=== PATIENT | female | born 2005 | race Caucasian/White ===

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

== ENCOUNTER 2025-01-09 13:01 | Emergency (ER) | payer BC, SELFPAY ==
--- NOTE | ~2025-01-09 | US_ITS ---
EXAMINATION: US abdomen limited DATE: 01/09/2025 15:41 INDICATION: RUQ pain with eating TECHNIQUE: Multiple grayscale and Doppler ultrasound images of limited portions of the abdomen were o btained. COMPARISON: CT abdomen pelvis, same date. FINDINGS: The visualized portions of the pancreas are normal. The liver is normal with normal echogen icity and echotexture. No surface nodularity. Normal hepatopetal flow in the main portal vein. Normal size gallbladder with no wall thickening or pericholecystic fluid. There is sludge and multiple gall stones. The common bile duct measures 2 mm. There was no sonographic Beavers sign. IMPRESSION: Normal limited abdominal ultrasound findings. Reviewed, dictated and finalized at location K.
--- NOTE | ~2025-01-09 | CT_ITS ---
EXAMINATION: CT abdomen pelvis w con DATE: 01/09/2025 14:33 INDICATION: Right-sided abdominal pain TECHNIQUE: Computed tomography (CT) of the abdomen and pelvis was performed without intravenous contr ast. Automated exposure control and iterative reconstruction technique were employed. The dose-length product was 191.47 mGy-cm. COMPARISON: 11/07/2023 FINDINGS: Mild atelectasis at the medial aspect of the right middle lobe and minimal lingular atelectasis. Hear t size is normal. No pericardial or pleural effusion. Liver, gallbladder, spleen and bilateral adrena l glands are normal. Severe fatty atrophy of the pancreas. Bilateral nonobstructing nephrolithiasis w ith 2 mm stone in upper pole calyx of the left kidney and 3 mm stone at the lower pole the right kidn ey. No evident ureteral stones or hydronephrosis. Seen is a linear high attenuation likely suture jorge e near the tip of the cecum along what on prior imaging appears be a small appendiceal stump related to prior appendectomy. Correlate with surgical history. Moderate to large amount of predominately pro ximal colonic stool which could be seen in the setting of constipation. No dilated bowel to suggest o bstruction. Bladder, anteverted uterus and bilateral adnexa are unremarkable. No free intraperitoneal gas or fluid. No pathologically enlarged abdominal or pelvic lymphadenopathy. IMPRESSION: 1. Moderate to large amount of colonic stool which can be seen in setting of constipation. No other a cute intra-abdominal/pelvic process. 2. Bilateral nonobstructing nephrolithiasis. 3. Severe fatty atrophy of the pancreas which given patient age is strongly suggestive of cystic fibr osis. Reviewed, dictated and finalized at location A. IMPRESSION: 1. Moderate to large amount of colonic stool which can be seen in setting of co nstipation. No other acute intra-abdominal/pelvic process. 2. Bilateral nonobstructing nephrolithiasis. 3. Severe fatty atrophy of the pancreas which given patient age is strongly sug gestive of cystic fibrosis.
[2025-01-09 13:03] VITALS: BP 101/59; PULSE 73; RESP 18; TEMP 36.6; O2SAT 100
--- OUTSIDE RECORDS SUMMARY | 2025-01-09 13:18 | XMS_ITS | Continuity of Care Document ---
Author Organization [facility] Address [address] [place] [address] [address] [place] [address] Phone Care Team Providers Care Senior Engineering Tech Name Role Phone Jes Geiger Unavailable Unavailable Procedures Procedure Date Eye Exam, New Patient Refraction Advance Directives Directive Yes / No Effective Date File Name No Information Encounters Encounter Description Practice Location Reason(s) For Visit Diagnoses Date Provider Providers Copied on Encounter [facility], [address], [place], [place], [id number], [place] tel:[phone] SEC [facility] So No Information 4-[address] Fely Andre. [address] [facility] , [address], [place], [address], [place]. tel:[phone] Family History Family Member Type Diagnosis Age At Onset No Information Payers Payer name Insurance type Covered republican ID Authoriza tion(s) No Information Social History [...]
--- OUTSIDE RECORDS SUMMARY | 2025-01-09 13:18 | XMS_ITS | Clinical Summary ---
Author Organization [facility] Address [address] [place] [address] Care Team Providers Care Dancer Or Choreographer Name Role Phone Em Solano DO Primary Care Provider [phone] Source Comments [facility],non-owned Affiliates and Associated Physician Practices is amultiple site organization consisting of ambulatory clinics and hospital sitesin [place], [place], [place] and [place]. This disclosure is being madepursuant to the Care Everywhere program and may not contain all information available regarding this patient. Last updated 18.[facility] Allergies Active Allergy Reactions Criticality Noted Date [...] FOOD 252 tablet 10/14/2024 Active pancrelipase (Creon) 42916-380248 units capsuleIndications: Pancreatic insufficiency (HCC) TAKE 3 CAPSULES BY MOUTH THREE TIMES DAILY WITH MEALS AND 2 CAPSULES WITH SNACKS 450 capsule 2 11/07/2024 Active Active Problems Patient Care Coordination No te Formatting of this note migh t be different from the original. Do you have any cultural preferences or concerns? 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 Assessment & Plan (09/06/2022 7:18 AM LOSS PREVENTION INVESTIGATOR): Tamara has little sensation of improvement with [...] 06/26/2021 Assessment & Plan (08/27/2021 2:21 PM LOSS PREVENTION INVESTIGATOR): Tamara is a 16 year female with [...] 02/24/2021 Assessment & Plan (09/02/2021 11:01 PM LOSS PREVENTION INVESTIGATOR): A&P - status post cystoscopy and left [...] - Urine trichomonas - Discussed with pediatric icing mixer, Dr. Marie, who recommends IUD removal Assessment [...] Obtain urine trichomonas - Discussed with pediatric icing mixer, Dr. 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 Assessment & Plan (09/06/2022 7:31 AM LOSS PREVENTION INVESTIGATOR): CF lung disease- Tamara does not appear [...] well. Assessment & Plan (10/19/2021 6:58 AM LOSS PREVENTION INVESTIGATOR): CF lung disease- Tamara is doing well [...] has had the influenza vaccine for the 5110-4197 season. She has had two doses of [...] 0 Assessment & Plan (09/28/2020 10:38 AM LOSS PREVENTION INVESTIGATOR): CF lung disease- Tamara is doing well [...] described the measures we have taken at [facility] in response to this crisis and the [...] CF physicians, nurses, respiratory therapists, dietitian, social staff worker, psychologist, and pharmacist. Assessment & Plan (08/04/2020 [...] described the measures we have taken at [facility] in response to this crisis and the efforts to minimize exposure if the patient needs to be seen in person or in the ED. Assessment & Plan (09/23/2019 9:30 AM LOSS PREVENTION INVESTIGATOR): CF lung disease- Tamara is doing well [...] CF physicians, nurses, respiratory therapists, dietitian, social staff worker, psychologist, and pharmacist. Assessment & Plan (06/03/2019 [...] season. Assessment & Plan (11/27/2018 8:18 AM LOSS PREVENTION INVESTIGATOR): CF lung disease- Tamara is doing well [...] findings on new therapy from the [place] [facility]yst[facility] Fibrosis conference last week. Assessment & [...] 67 %ile (Z= 0.43) based on [facility] 2-20 Years BMI-for-age data using vitals from [...] time. Assessment & Plan (10/30/2017 2:05 PM LOSS PREVENTION INVESTIGATOR): CF lung disease- Tamara is doing well [...] time. Assessment & Plan (11/04/2016 12:08 PM LOSS PREVENTION INVESTIGATOR): CF lung disease- Tamara is doing well [...] illness. Assessment & Plan (09/12/2016 10:08 AM LOSS PREVENTION INVESTIGATOR): CF lung disease- Tamara is doing well [...] time. Assessment & Plan (11/02/2015 10:13 AM LOSS PREVENTION INVESTIGATOR): CF lung disease- Tamara is doing well [...] time. Assessment & Plan (08/31/2015 10:50 AM LOSS PREVENTION INVESTIGATOR): CF lung disease- Tamara is doing well [...] 11/30/2015 Assessment & Plan (11/02/2015 10:15 AM LOSS PREVENTION INVESTIGATOR): I think that this is of viral [...] us. Assessment & Plan (11/02/2015 10:17 AM LOSS PREVENTION INVESTIGATOR): Vocal Cord Dysfunction - The incomplete/poor response [...] Type Department Care Team Description 12/06/2024 Telephone [facility] Cystic Fibrosis [address] [place] [address] Obdulia Blackwood CPhT Medication Prior Auth Request 11/07/2024 Orders Only [facility] - Pulmonology [address] [facility] [place] [id number] Luciana Blunt, BECCA Pancreatic insufficiency 10/14/2024 Refill [facility] Cystic Fibrosis [address] [place] [address] Stan Celeste MD Refill Request from Last 3 Months Immunizations Name Administration [...] TRIVALENT; 6MO+), 0.5 ML (IIV3) 07/01/2024,06/27/2013,07/30/2011,07/24,08/29/2006,07/11/2006 MENINGOCOCCAL ACWY (MCV4P) VAC IM 06/09/2016 MENINGOCOCCAL ACWY MENVEO 11/30/2021 MMR/VARICELLA 07/08/2010,05/30/2006 PNEUMOCOCCAL PCV7 CONJ, PEDS [...] Comments Blood Pressure 96/64 10/07/2024 8:36 AM LOSS PREVENTION INVESTIGATOR Pulse 72 10/07/2024 8:36 AM LOSS PREVENTION INVESTIGATOR Temperature 36.6 C (97.8 F) 08/05/2024 10:39 AM CDT Respiratory Rate 17 10/07/2024 8:36 AM LOSS PREVENTION INVESTIGATOR Oxygen Saturation 94% 10/07/2024 8:36 AM LOSS PREVENTION INVESTIGATOR Inhaled Oxygen Concentration 100% 02/21/2023 2 :15 PM CDT Weight 64 kg (141 lb 3.2 oz) 10/07/2024 8:36 AM LOSS PREVENTION INVESTIGATOR Height 162.6 cm (5' 4 ) 10/07/2024 8:36 AM LOSS PREVENTION INVESTIGATOR Body Mass Index 24.24 10/07/2024 8:36 AM LOSS PREVENTION INVESTIGATOR Plan of Treatment Upcoming Encounters Date Type Department Care Team (Late st Contact Info) Description 01/21/2025 1:00 PM CDT Office Visit [facility] - Neurology [address] [facility] [place] [address] Patt Crain PA-C [address] [place] [address] Health Maintenance Due Date Last Done Comments PNEUMOCOCCAL VACCINE (1 of 1 - PPSV23) 2011 05/30/2006, 2005, 2005, Additional history exists AFB CULTURE 08/26/2014 08/26/2013 HIV SCREENING 2020 MENINGOCOCCAL (Group B) VACC INE SHARED DECISION-MAKING (1 of 2 - Standard) 2021 BONE DENSITY (CF) 09/28/2022 09/28/2020 HEPATITIS C SCREENING 05/22/2023 COVID-19 VACCINE (3 - 2023-2 5 season) 2024 04/29/2021, 04/07/2021 CHLAMYDIA/GONORRHEA SCREENING 07/21/2024, 01/10/2023, 10/13/2022, Additional history exists DEPRESSION SCREENING 10/09/2024 11/20/2023 PULMONARY CULTURE 01/05/2025 10/07/2024, , 10/16/2023, Additional history exists DTAP/TDAP/TD VACCINES (7 - T d or Tdap) 06/03/2025 06/03/2015, 07/08/2010, 08/29/2006, Additional history exists 2 HR GTT/FASTING GLUCOSE 07/01/20252 024, 08/07/2023, 03/28/2022, Additional history exists CBC [...] history exists Medical Devices Explanted Type Area Automotive Parts Counter Associate Device Identifier Shelf Expiration Date Model / Serial / Lot Set Stent 24cm 5fr Universa .038in 3cm 2 Explanted:Qty: 1 on 06/29/2021 at [facility] Left: Ureter [employer] 02/23/2023 [id number] / / [id number] Set Stent 26cm 5fr Universa 2 Pgtl Crv Implanted:Qty: 1 on 06/29/2021 by Kashmir Wheat MD at [facility] Explanted:Qty: 1 on 08/04/2021 by Kashmir Wheat MD at [facility] Left: Ureter [employer] 01/31/2024 [id number] / / [id number] Firm Ureteral Stent And Positioner Implanted:Qty: 1 on 08/04/2021 by Kashmir Wheat MD at [facility] Explanted:Qty: 1 on 08/24/2021 by Kashmir Wheat MD at [facility] Left: Ureter [employer] 04/06/2024 [id number] / / [id number] Description:NO CHARGE ITEM, TRIAL stent removed intact and discarded Procedures Procedure Name Priority Date/Time Associated Diagnosis Comments CULTURE CYSTIC FIBROSIS PULMONARY Routine 10/07/2024 9:51 AM LOSS PREVENTION INVESTIGATOR Cystic fibrosis CBC W AUTO DIFFERENTIAL Routine 07/01/2024 1:11 PM CDT Cystic fibrosis-V588oim/F 508del COMPREHENSIVE METABOLIC PANEL Routine 07/01/2024 1:11 PM CDT Cystic fibrosis-O508jhv/F 508del IGE BLOOD Routine 07/01/2024 1:11 PM CDT Cystic fibrosis-R711unl/F 508del PT-INR [facility] Routine 07/01/2024 1:11 PM CDT Cystic fibrosis-F852nrq/F 508del VITAMIN E Routine 07/01/2024 1:11 PM CDT Cystic fibrosis-N506jem/F 508del VITAMIN D 25-HYDROXY Routine 07/01/2024 1:11 PM CDT Cystic fibrosis-A311mqz/F 508del VITAMIN A Routine 07/01/2024 1:11 PM CDT Cystic fibrosis-D104kyd/F 508del GGT Routine 07/01/2024 1:11 PM CDT Cystic fibrosis-I505cvd/F 508del GLUCOSE - POINT OF CARE Routine 07/01/2024 10:56 AM CDT CHLAMYDIA + GC AMPLIFIED PROBE Routine 01/10/2023 5:02 PM CDT DEXA BONE DENSITY AXIAL SKELETON Routine 09/28/2020 11:36 AM LOSS PREVENTION INVESTIGATOR Cystic fibrosis CULTURE AFB+SMEAR Routine 08/26/2013 12: 01 PM LOSS PREVENTION INVESTIGATOR Cystic fibrosis from Last 3 Months or Most Recently Relevant to Health Maintenance Results * (ABNORMAL) CULTURE CYSTIC FIBROSIS PULMONARY (10/07/2024 9:51 AM LOSS PREVENTION INVESTIGATOR) Culture Moderate normal oropharyngeal karin CAIN 10/12/2024 2:50 PM LOSS PREVENTION INVESTIGATOR [facility] Culture Rare Staphylococcus aureus methicillin-resista nt (MRSA)(A) CAIN 10/12/2024 2:50 PM LOSS PREVENTION INVESTIGATOR [facility] Comment:Staphylococcus aureu s methicillin-resistant (MRSA) detected by penicillin binding protein immunoassay. Contact precautions required. Conventional antibiotic susceptibility testing to follow. Culture Rare Pseudomonas aeruginosa (mucoid)(A) 10/12/2024 2:50 PM LOSS PREVENTION INVESTIGATOR [facility] Gram Stain No organisms seen 025 2:50 PM LOSS PREVENTION INVESTIGATOR [facility] Gram Stain Rare Polymorphonuclear cells 10/12/2024 2:50 PM LOSS PREVENTION INVESTIGATOR [facility] Microbiology SPUTUM SPECIMEN OBTAINED BY SPUTUM INDUCTION / Unknown Collection / Unknown 10/07/2024 9:51 AM LOSS PREVENTION INVESTIGATOR 10/07/2024 3:51 PM LOSS PREVENTION INVESTIGATOR [facility] MICROBIOLOG[facility] - 10/12/2024 2:50 PM LOSS PREVENTION INVESTIGATOR Methicillin-resistant Staphylococci (MRSA) are resistant to all [...] Calvillo MD LAB - MICROBIOL OGY ORDERABLES Performing Organization Address [facility]/ZIP Co de Phone Number [facility] [address] [place] [address], [facility] [phone] * PT-INR [facility] (07/01/2024 1:11 PM CDT) Pathologist [facility] PT 13.6 12.1 - 14.8 Seconds 07/01/2024 1:56 PM CDT [facility] INR 1.1 See Comment 07/01/2024 1:56 PM CDT [facility] Comment:The suggested therap eutic range for standard coumadin (warfarin) therapy is an INR of 2.0-3.0. For high-risk patients (Mechanical Mitral Valve Prosthesis, etc.), the suggested prophylactic therapeutic range is an INR of 2.5-3.5. Blood BLOOD SPECIMEN / Unknown Lab Venipuncture / Unknown 07/01/2024 1:11 PM CDT 07/01/2024 1:26 PM CDT Stan Celeste MD LAB - COAGULATION OR DERABLES Performing Organization Address [facility]/ZIP Co de Phone Number [facility] [address] [place] [address], [facility] [phone] * (ABNORMAL) VITAMIN A (07/01/2024 1:11 PM CDT) Vitamin A 0.23(L) 0.30 - 1.20 mg/L 07/04/2024 9:14 AM CDT [facility] ([facility]) Retinyl Palmitate <0.02 0.00 - 0.10 mg/L 07/04/2024 9:14 AM CDT [facility] ([facility]) Interpretation Vitamin A See Note 07/04/2024 9:14 AM CDT [facility] ([facility]) Comment: Retinol greater than 0.3 mg/L is typically associated with adequate liver stores in adults, and is within normal limits for children. Retinol less than 0.10 mg/L may indicate depleted liver stores and severe deficiency. This test was developed and its performance characteristics determined by [facility]. It has not been cleared or approved by the US Food and Drug Administration. This test was performed in a CLIA certified laboratory and is intended for clinical purposes. Performed By: [place] [address] [employer] Base Assembler: Jay Reyna MD, PhD CLIA Number: [id number] Blood BLOOD SPECIMEN / Unknown Lab Venipuncture / Unknown 07/01/2024 1:11 PM CDT 07/01/2024 1:26 PM CDT Stan Celeste MD LAB - CHEMISTRY ETHEL STATON Performing Organization Address [facility]/ZIP Co de Phone Number [facility] ([facility]) [address] [place] [address] * (ABNORMAL) VITAMIN E (07/01/2024 1:11 PM CDT) Vitamin E Alpha Tocopherol 5.2(L) 5.5 - 18.0 mg/L 07/04/2024 9:14 AM CDT [facility] [email or web address] ([facility]) Comment: This test was developed and its performance characteristics determined by [facility]. It has not been cleared or approved by the US Food and Drug Administration. This test was performed in a CLIA certified laboratory and is intended for clinical purposes. Vitamin E Gamma Tocopherol 0.6 0.0 - 6.0 mg/L 07/04/2024 9:14 AM CDT [facility] [email or web address] ([facility]) Comment: Performed By: [facility] [employer] [address] [place] [address] [employer] As[employer]er: Jay Reyna MD, PhD CLIA Number: [id number] Blood BLOOD SPECIMEN / Unknown Lab Venipuncture / Unknown 07/01/2024 1:11 PM CDT 07/01/2024 1:26 PM CDT Stan Celeste MD LAB - CHEMISTRY ETHEL STATON Performing Organization Address City/[facility]/ZIP Co de Phone Number [facility] [email or web address] ([facility]) [address] [place] [address] * (ABNORMAL) VITAMIN D 25-HYDROXY (07/01/2024 1:11 PM CDT) Vitamin D, 25 Hydroxy 27.6(L) 30.0 - 80.0 ng/mL 07/01/2024 2:20 PM CDT [facility] Comment: The recommendations for 25-Hydroxy Vitamin D [...] Celeste MD LAB - CHEMISTRY ETHEL STATON [facility] Organization Address [facility]/State/ZIP Co de Phone Number [address] [address], [facility] [phone] * CBC W AUTO DIFFERENTIAL (07/01/2024 1:11 PM CDT) Pathologist [facility] WBC 4.6 4.0 - 10.7 x10E9/L 07/01/2024 1:32 PM CDT [facility] RBC Count 4.22 3.90 - 5.20 x10E12/L 07/01/2024 1:32 PM CDT [facility] Hemoglobin 12.9 11.9 - 15.8 g/dL 07/01/2024 1:32 PM CDT [facility] Hematocrit 38.4 34.8 - 46.1 % 07/01/2024 1:32 PM CDT [facility] MCV 91.0 80.0 - 98.0 fL 07/01/2024 1:32 PM CDT [facility] MCH 30.6 26.7 - 33.6 pg 07/01/2024 1:32 PM [facility] MCHC 33.6 31.7 - 36.3 g/dL 07/01/2024 1:32 PM [facility] RDW-CV 12.0 11.3 - 14.8 % 07/01/2024 1:32 PM [facility] Platelet Count 201 150 - 420 x10E9/L 07/01/2024 1:32 PM [facility] MPV 10.6 7.8 - 11.4 fL 07/01/2024 1:32 PM [facility] Neutrophil % 42.1 41.0 - 74.0 % 07/01/2024 1:32 PM [facility] Lymphocyte % 45.8 17.0 - 47.0 % 07/01/2024 1:32 PM [facility] Monocyte % 6.9 3.0 - 11.0 % 07/01/2024 1:32 PM [facility] Eosinophil % 4.6 0.0 - 7.0 % 07/01/2024 1:32 PM [facility] Basophil % 0.4 0.0 - 1.6 % 07/01/2024 1:32 PM [facility] Immature Granulocytes % 0.2 0.0 - 1.0 % 07/01/2024 1:32 PM [facility] Neutrophil Absolute 1.94 1.60 - 7.50 x10E9/L 07/01/2024 1:32 PM [facility] Lymphocyte Absolute 2.11 1.00 - 4.40 x10E9/L 07/01/2024 1:32 PM [facility] Monocyte Absolute 0.32 0.15 - 1.00 x10E9/L 07/01/2024 1:32 PM [facility] Eosinophil Absolute 0.21 0.00 - 0.60 x10E9/L 07/01/2024 1:32 PM [facility] Basophil Absolute 0.02 0.00 - 0.13 x10E9/L 07/01/2024 1:32 PM [facility] Blood BLOOD SPECIMEN / Unknown Lab Venipuncture / Unknown 07/01/2024 1:11 PM CDT 07/01/2024 1:26 PM CDT Stan Celeste MD LAB - HEMATOLOGY ORD ERABLES [facility] [address] [place] [address], [facility] [phone] * (ABNORMAL) COMPREHENSIVE METABOLIC PANEL (07/01/2024 1:11 PM CDT) BUN 7 7 - 26 mg/dL 07/01/2024 2:02 PM [facility] Creatinine 0.74 0.56 - 0.96 mg/dL 07/01/2024 2:02 PM [facility] Sodium 138 136 - 145 mmol/L 07/01/2024 2:02 PM [facility] Potassium 3.6 3.5 - 4.5 mmol/L 07/01/2024 2:02 PM [facility] Chloride 110(H) 98 - 107 mmol/L 07/01/2024 2:02 PM [facility] CO2 22 22 - 29 mmol/L 07/01/2024 2:02 PM [facility] Glucose 129(H) 70 - 115 mg/dL 07/01/2024 2:02 PM [facility] Calcium 9.5 8.4 - 10.2 mg/dL 07/01/2024 2:02 PM [facility] Protein Total 7.2 6.0 - 8.3 g/dL 07/01/2024 2:02 PM [facility] Albumin 4.2 3.4 - 5.0 g/dL 07/01/2024 2:02 PM [facility] Bilirubin Total 0.5 0.2 - 1.2 mg/dL 07/01/2024 2:02 PM [facility] Alkaline Phosphatase 87 40 - 150 U/L 07/01/2024 2:02 PM [facility] ALT 22 5 - 55 U/L 07/01/2024 2:02 PM [facility] AST 26 5 - 34 U/L 07/01/2024 2:02 PM [facility] Anion Gap 6 6 - 16 07/01/2024 2:02 PM CDT [facility] BUN/Creatinine Ratio 9 7 - 23 07/01/2024 2:02 PM CDT [facility] Osmolality Calculated 286 275 - 295 mOsm/kg 07/01/2024 2:02 PM CDT [facility] Albumin/Globulin Ratio 1.4 1.1 - 2.3 07/01/2024 2:02 PM CDT [facility] eGFR by CKD-EPI >90 >=90 mL/min/1.7 3 m2 07/01/2024 2:02 PM CDT [facility] Blood BLOOD SPECIMEN / Unknown Lab Venipuncture / Unknown 07/01/2024 1:11 PM CDT 07/01/2024 1:26 PM CDT Stan Celeste MD LAB - CHEMISTRY ETHEL STATON Performing Organization Address City/[facility]/ZIP Co de Phone Number [address] [address], [facility] [phone] * GGT (07/01/2024 1:11 PM CDT) GGT 15 9 - 64 Units/L 07/01/2024 2:02 PM CDT [facility] Blood BLOOD SPECIMEN / Unknown Lab Venipuncture / Unknown 07/01/2024 1:11 PM CDT 07/01/2024 1:26 PM CDT Stan Celeste MD LAB - CHEMISTRY ORDDarshan STATON [facility] [address] [place] [address], [place] [phone] * IGE BLOOD (07/01/2024 1:11 PM CDT) IgE Total 27 <=214 kU/L 07/03/2024 6:33 PM CDT [employer] ([facility]) Comment: REFERENCE INTERVAL: Immunoglobulin E, Serum Access complete set of age- and/or gender-specific reference intervals for this test in the [facility] ([employer]). Performed By: [facility] [address] [place], [place] [id number] [employer]er: Jay Reyna MD, PhD CLIA Number: [id number] Blood BLOOD SPECIMEN / Unknown Lab Venipuncture / Unknown 07/01/2024 1:11 PM CDT 07/01/2024 1:26 PM CDT Stan Celeste MD LAB - CHEMISTRY ETHEL STATON Performing Organization Address City/[facility]/ZIP Co de Phone Number [facility] ([facility]) [address] * GLUCOSE - POINT OF CARE (07/01/2024 10:56 AM CDT) Glucose WB/POC 78 70 - 106 mg/dL 07/01/2024 10:59 AM CDT [facility] Specimen Type Cap Fingerstick 2023 10:59 AM CDT [facility] Blood BLOOD SPECIMEN / Unknown 07/01/2024 10:56 AM CDT 07/01/2024 10:59 AM CDT Mildred Whitaker COACH WIRER-PIPE LINE REPAIRER LAB - POINT O F CARE ORDERABLES Performing Organization Address [facility] Co de Phone Number [facility] [address] [place] [id number] * CHLAMYDIA + GC AMPLIFIED PROBE (01/10/2023 5:02 PM CDT) Chlamydia Amplified Probe Negative Negative 01/10/2023 11:34 PM CDT [facility] GC Amplified Probe Negative Negative 01/10/2023 11:34 PM CDT [facility] Microbiology URINE / Unknown Collection / Unknown 01/10/2023 5:02 PM CDT 01/10/2023 5:20 PM CDT Narrative [facility] - 01/10/2023 11:34 PM CDT Results based on detection/no detection of ribosomal RNA by amplified method. Ayla Carmen MD LAB - MICROBIOLOGY O RDERABLES Performing Organization Address City/[facility]/ZIP Co de Phone Number [facility] [address] [place], [place] [address], [facility] [phone] * DEXA BONE DENSITY AXIAL SKELETON (09/28/2020 11:36 AM LOSS PREVENTION INVESTIGATOR) Anatomical Region Laterality Modality Radiographic Ani ging 09/28/2020 11:2 3 AM LOSS PREVENTION INVESTIGATOR Impressions 09/28/2020 1:30 PM LOSS PREVENTION INVESTIGATOR Normal bone density values for age. Z-score [...] at 1:30 PM Narrative 09/28/2020 1:30 PM LOSS PREVENTION INVESTIGATOR Dual x-ray absorptiometry was performed of the [...] on 09/28/2020 at 1:30 PM Mildred Whitaker COACH WIRER-PIPE LINE REPAIRER DEXA ORDERABL ES * CULTURE AFB+SMEAR (08/26/2013 12:01 PM LOSS PREVENTION INVESTIGATOR) Culture No Acid Fast Bacillus Isolated 10/07/2013 9:16 AM LOSS PREVENTION INVESTIGATOR [facility] AFB Smear No Acid Fast bacilli seen 10/07/2013 9:16 AM LOSS PREVENTION INVESTIGATOR [facility] Microbiology SPUTUM / Unknown 08/26/2013 12:01 PM LOSS PREVENTION INVESTIGATOR 08/26/2013 12:16 PM LOSS PREVENTION INVESTIGATOR Cedric Casas MD LAB - MICROBIOLOGY ORDERABLES [facility] [address] [place] [address], [facility] from Last 3 Months or Most Recently [...] 8:14 PM 02/11/2021 12:00 PM Care Teams Dancer Or Choreographer Relationship Specialty Start Date End Date Em Solano DO [address] [facility] [place] [address] PCP - General Internal Medicine 10/18/23
--- OUTSIDE RECORDS SUMMARY | 2025-01-09 13:18 | XMS_ITS | Encounter Summary ---
Author Organization [facility] Address [address] [place] [address] Care Team Providers Care Urinalysis Technician Name Role Phone Yas An MD Primary Care Provider [phone] Em Solano DO Primary Care Provider [phone] Encounter Details Date Type Department Care Team (Late st Contact Info) Description 01/19/[address] [facility] - [address] [address] Ayla Carmen MD [address] [place] [id number] Social History Tobacco Use Types Packs/Day Years [...] 02/20 or after. Transferred mom to our funeral car driver to discuss options. Will send update to [...] Description 01/21/2025 1:00 PM CDT Office Visit [facility] - Neurology [address] [facility], [facility] [place] [address] Patt Crain PA-C [address] [place] [address] documented as of this encounter Visit Diagnoses Not on filedocumented in this encounter Additional Health Concerns Infection Onset Date Last Indicated Resolved Time Cystic Fibrosis 07/04/2014 07/04/2014 MDRO 01/29/2018 07/30/2018 MRSA 09/23/2019 10/07/2024 COVID-19 Under Investigation 06/11/2024 06/11/2024 06/11/2024 11:25 AM CDT COVID-19 Confirmed 06/11/2024 06/11/2024 4:33 AM CDT documented as of this encounter Care Teams Urinalysis Technician Relationship Specialty Start Date End Date Yas An MD [address] [facility] [address] [place] [address] PCP - General 05/01/18 10/17/23 Em Solano DO [address] [facility] [place] [address] PCP - General Internal Medicine 10/18/23 documented as of this encounter
--- OUTSIDE RECORDS SUMMARY | 2025-01-09 13:18 | XMS_ITS | Clinical Summary ---
Author Organization [facility] Address [address] [place] [address] Care Team Providers Care Livestock Buyer Name Role Phone Greyson Fine Primary Care Provider [phone] Allergies Active Allergy Reactions Criticality Noted Date [...] muscle every 3 (three) months. Managed by MEDICAL/SURGERY REGISTERED NURSE Active amitriptyline (ELAVIL) 50 MG tabletIndication s:Migraine with aura and without status migrainosus, not intractable,Depr ession, unspecified depression type,Insomnia, unspecified type Take 1 tablet (50 mg total) by mouth nightly at bedtime. 30 tablet 1 09/06/2023 Active Active Problems Problem Noted Date Diagnosed Date Anxiety 09/05/2023 Depression, unspecified depression type 09/05/20 Cystic fibrosis ([facility]) 07/31/2023 History of kidney stones 07/31/2023 Migraine [...] Comments Blood Pressure 90/59 09/06/2023 9:40 AM [employer] Pulse 84 09/06/2023 9:40 AM [employer] Temperature 36.4 C (97.6 F) 09/06/2023 9:40 AM [employer] Respiratory Rate 12 09/06/2023 9:40 AM [employer] Oxygen Saturation 100% 09/06/2023 9:40 AM [employer] Inhaled Oxygen Concentration - - Weight 63 kg (139 lb) 09/06/2023 9:40 AM [employer] Height 165.1 cm (5' 5 ) 09/06/2023 9:40 AM [employer] Body Mass Index 23.13 09/06/2023 9:40 AM [employer] Body Mass Index Percentile 69.00% 09/06/2023 9:4 0 AM [employer] Growth Chart: CDC (Girls, 2- 20 Years) Plan of Treatment Health Maintenance Due Date Last Done Comments Meningococcal B Vaccine (1 of 2 - Standard) 2021 Hepatitis C 2023 COVID-19 Vaccine ( - season) 2024 04/29/2021, 04/07/2021 Influenza Adult (#1) 2024 08/07/2023, 07/04/2022, 11/30/2021, Additional history exists Annual Physical 07/31/2024 07/31/2023 PHQ-2 (Physician [place]) 10/09/2024 09/06/2023 DTaP, Tdap and Td Vaccines [...] to complete this topic Insurance Care Teams Livestock Buyer Relationship Specialty [place] [address] [place] [address] PCP - General Physician [employer] [facility] 12/19/23
[2025-01-09 13:35] LABS: Basophils Percent Auto 0.3 % (0.2-1.2); Eosinophils Absolute Auto 0.2 K/mm3 (0-0.3); Eosinophils Percent Auto 2.8 % (0-4.4); Hematocrit 38.5 % (37.0-47.0); Hemoglobin 12.6 g/dL (12.0-15.0); Immature Granulocyte Absolute 0.03 K/mm3 (0.00-0.031); Immature Granulocyte Percent A 0.5 % (0-0.5); Lymphocytes Absolute Auto 2.25 K/mm3 (0.9-3.2); Lymphocytes Percent Auto 37.1 % (18.3-44.2); Mean Corpuscular HGB Conc 32.7 g/dl (32-36); Mean Corpuscular Hemoglobin 30.5 pg (26-34); Mean Corpuscular Volume 93.2 fl (80-100); Mean Platelet Volume 10.7 fl (7.4-10.4); Monocytes Absolute Auto 0.5 K/mm3 (0.1-0.6); Monocytes Percent Auto 8.6 % (2.6-8.5); Neutrophils Absolute Auto 3.1 K/mm3 (1.3-6.7); Neutrophils Percent Auto 50.7 % (45.5-73.1); Platelet Count Result 253 k/mm3 (150-375); Red Blood Count 4.13 M/mm3 (4.2-5.4); Red Cell Distribution Width 13.1 % (11.5-14.5); White Blood Count 6.1 K/mm3 (4.5-10.0)
[2025-01-09 13:46] LABS: BEDSIDEPREGUCG Negative (Negative)
--- OUTSIDE RECORDS SUMMARY | 2025-01-09 13:46 | XMS_ITS | Continuity of Care Document ---
Author Organization [facility] Address [address] [place] [address] [address] [place] [address] Phone Care Team Providers Care Casket Trimmer Name Role Phone Jes Geiger Unavailable Unavailable Procedures Procedure Date Eye Exam, New Patient Refraction Advance Directives Directive Yes / No Effective Date File Name No Information Encounters Encounter Description Practice Location Reason(s) For Visit Diagnoses Date Provider Providers Copied on Encounter [facility], [address], [place], [place], [id number], [place] tel:[phone] [facility] So No Information [phone] Fely Andre. [address] [facility] , [address], [place], [address], [place]. tel:[phone] Family History Family Member Type Diagnosis Age [...]
--- OUTSIDE RECORDS SUMMARY | 2025-01-09 13:46 | XMS_ITS | Clinical Summary ---
Author Organization [facility] [employer] Address [address] [place] [address] Care Team Providers Care Technologies Division Chair Name Role Phone Em Solano DO Primary Care Provider [phone] Source Comments [facility] [employer],non-owned Affiliates and Associated Physician Practices is amultiple site organization consisting of ambulatory clinics and hospital sitesin [place], [place], [place] and [place]. This disclosure is being madepursuant to the Care Everywhere program and may not contain all information available regarding this patient. Last updated 18.[facility] [employer] Allergies Active Allergy Reactions Criticality Noted Date [...] FOOD 252 tablet 10/14/2024 Active pancrelipase (Creon) 00697-338407 units capsuleIndications: Pancreatic insufficiency (HCC) TAKE 3 CAPSULES BY MOUTH THREE TIMES DAILY WITH MEALS AND 2 CAPSULES WITH SNACKS 450 capsule 2 11/07/2024 Active Active Problems Patient Care Coordination No te Formatting of this note migh t be different from the original. Do you have any cultural preferences or concerns? 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 Assessment & Plan (09/06/2022 7:18 AM FRUIT RAISER): Tamara has little sensation of improvement with [...] 06/26/2021 Assessment & Plan (08/27/2021 2:21 PM FRUIT RAISER): Tamara is a 16 year female with [...] 02/24/2021 Assessment & Plan (09/02/2021 11:01 PM FRUIT RAISER): A&P - status post cystoscopy and left [...] - Urine trichomonas - Discussed with pediatric tool die maker, Dr. Marie, who recommends IUD removal Assessment [...] Obtain urine trichomonas - Discussed with pediatric tool die maker, Dr. 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 Assessment & Plan (09/06/2022 7:31 AM FRUIT RAISER): CF lung disease- Tamara does not appear [...] well. Assessment & Plan (10/19/2021 6:58 AM FRUIT RAISER): CF lung disease- Tamara is doing well [...] has had the influenza vaccine for the 9912-2112 season. She has had two doses of [...] 0 Assessment & Plan (09/28/2020 10:38 AM FRUIT RAISER): CF lung disease- Tamara is doing well [...] described the measures we have taken at [facility] in response to this crisis and [...] other CF physicians, nurses, respiratory therapists, dietitian, elementary school social worker, psychologist, and pharmacist. Assessment & Plan [...] described the measures we have taken at [facility] in response to this crisis and the efforts to minimize exposure if the patient needs to be seen in person or in the ED. Assessment & Plan (09/23/2019 9:30 AM FRUIT RAISER): CF lung disease- Tamara is doing well [...] other CF physicians, nurses, respiratory therapists, dietitian, elementary school social worker, psychologist, and pharmacist. Assessment & Plan [...] season. Assessment & Plan (11/27/2018 8:18 AM FRUIT RAISER): CF lung disease- Tamara is doing well [...] findings on new therapy from the [place] [facility]yst[facility] Fibrosis conference last week. Assessment & [...] a 67 %ile (Z= 0.43) based on [facility] 2-20 Years BMI-for-age data using vitals [...] time. Assessment & Plan (10/30/2017 2:05 PM FRUIT RAISER): CF lung disease- Tamara is doing well [...] time. Assessment & Plan (11/04/2016 12:08 PM FRUIT RAISER): CF lung disease- Tamara is doing well [...] illness. Assessment & Plan (09/12/2016 10:08 AM FRUIT RAISER): CF lung disease- Tamara is doing well [...] time. Assessment & Plan (11/02/2015 10:13 AM FRUIT RAISER): CF lung disease- Tamara is doing well [...] time. Assessment & Plan (08/31/2015 10:50 AM FRUIT RAISER): CF lung disease- Tamara is doing well [...] 11/30/2015 Assessment & Plan (11/02/2015 10:15 AM FRUIT RAISER): I think that this is of viral [...] us. Assessment & Plan (11/02/2015 10:17 AM FRUIT RAISER): Vocal Cord Dysfunction - The incomplete/poor response [...] Type Department Care Team Description 12/06/2024 Telephone [facility] Cystic Fibrosis [address] [place] [address] Obdulia Blackwood CPhT Medication Prior Auth Request 11/07/2024 Orders Only [facility] - Pulmonology [address] [facility] [place] [id number] Luciana Blunt, BECCA Pancreatic insufficiency 10/14/2024 Refill [facility] Cystic Fibrosis [address] [place] [address] Stan Celeste MD Refill Request from Last [...] Comments Blood Pressure 96/64 10/07/2024 8:36 AM FRUIT RAISER Pulse 72 10/07/2024 8:36 AM FRUIT RAISER Temperature 36.6 C (97.8 F) 08/05/2024 10:39 AM CDT Respiratory Rate 17 10/07/2024 8:36 AM FRUIT RAISER Oxygen Saturation 94% 10/07/2024 8:36 AM FRUIT RAISER Inhaled Oxygen Concentration 100% 02/21/2023 2 :15 PM CDT Weight 64 kg (141 lb 3.2 oz) 10/07/2024 8:36 AM FRUIT RAISER Height 162.6 cm (5' 4 ) 10/07/2024 8:36 AM FRUIT RAISER Body Mass Index 24.24 10/07/2024 8:36 AM FRUIT RAISER Plan of Treatment Upcoming Encounters Date Type Department Care Team (Late st Contact Info) Description 01/21/2025 1:00 PM CDT Office Visit [facility] - Neurology [address] [facility] [place] [address] Patt Crain PA-C [address] [place] [address] Health Maintenance Due Date Last Done Comments [...] history exists Medical Devices Explanted Type Area [employer] Laboratory Assistant Device Identifier Shelf Expiration Date Model / Serial / Lot Set Stent 24cm 5fr Universa .038in 3cm 2 Explanted:Qty: 1 on 06/29/2021 at [facility] Left: Ureter [employer] 02/23/2023 [id number] / / [id number] Set Stent 26cm 5fr Universa 2 Pgtl Crv Implanted:Qty: 1 on 06/29/2021 by Kashmir Wheat MD at [facility] Explanted:Qty: 1 on 08/04/2021 by Kashmir Wheat MD at [facility] Left: Ureter [employer] 01/31/2024 [id number] / / [id number] Firm Ureteral Stent And Positioner Implanted:Qty: 1 on 08/04/2021 by Kashmir Wheat MD at [facility] Explanted:Qty: 1 on 08/24/2021 by Kashmir Wheat MD at [facility] Left: Ureter [employer] 04/06/2024 [id number] / / [id number] Description:NO CHARGE ITEM, TRIAL stent removed intact and discarded Procedures Procedure Name Priority Date/Time Associated Diagnosis Comments CULTURE CYSTIC FIBROSIS PULMONARY Routine 10/07/2024 9:51 AM FRUIT RAISER Cystic fibrosis CBC W AUTO DIFFERENTIAL Routine 07/01/2024 1:11 PM CDT Cystic fibrosis-I209aaj/F 508del COMPREHENSIVE METABOLIC PANEL Routine 07/01/2024 1:11 PM CDT Cystic fibrosis-K214gxw/F 508del IGE BLOOD Routine 07/01/2024 1:11 PM CDT Cystic fibrosis-D571fbi/F 508del PT-INR SLH Routine 07/01/2024 1:11 PM CDT Cystic fibrosis-N777zgs/F 508del VITAMIN E Routine 07/01/2024 1:11 PM CDT Cystic fibrosis-Q742hrr/F 508del VITAMIN D 25-HYDROXY Routine 07/01/2024 1:11 PM CDT Cystic fibrosis-Q318yxx/F 508del VITAMIN A Routine 07/01/2024 1:11 PM CDT Cystic fibrosis-P527rsg/F 508del GGT Routine 07/01/2024 1:11 PM CDT Cystic fibrosis-T259hou/F 508del GLUCOSE - POINT OF CARE Routine 07/01/2024 10:56 AM CDT CHLAMYDIA + GC AMPLIFIED PROBE Routine 01/10/2023 5:02 PM CDT DEXA BONE DENSITY AXIAL SKELETON Routine 09/28/2020 11:36 AM FRUIT RAISER Cystic fibrosis CULTURE AFB+SMEAR Routine 08/26/2013 12: 01 PM FRUIT RAISER Cystic fibrosis from Last 3 Months or Most Recently Relevant to Health Maintenance Results * (ABNORMAL) CULTURE CYSTIC FIBROSIS PULMONARY (10/07/2024 9:51 AM FRUIT RAISER) Culture Moderate normal oropharyngeal karin CAIN 10/12/2024 2:50 PM FRUIT RAISER [facility] Culture Rare Staphylococcus aureus methicillin-resista nt (MRSA)(A) CAIN 10/12/2024 2:50 PM FRUIT RAISER [facility] Comment:Staphylococcus aureu s methicillin-resistant (MRSA) detected by penicillin binding protein immunoassay. Contact precautions required. Conventional antibiotic susceptibility testing to follow. Culture Rare Pseudomonas aeruginosa (mucoid)(A) 10/12/2024 2:50 PM FRUIT RAISER [facility] Gram Stain No organisms seen 025 2:50 PM FRUIT RAISER [facility] Gram Stain Rare Polymorphonuclear cells 10/12/2024 2:50 PM FRUIT RAISER [facility] Microbiology SPUTUM SPECIMEN OBTAINED BY SPUTUM INDUCTION / Unknown Collection / Unknown 10/07/2024 9:51 AM FRUIT RAISER 10/07/2024 3:51 PM FRUIT RAISER [facility] - 10/12/2024 2:50 PM FRUIT RAISER Methicillin-resistant Staphylococci (MRSA) are resistant to all [...] - MICROBIOL OGY ORDERABLES Performing Organization Address [facility]/ZIP Co de Phone Number [facility] [address] [place] [address], [facility] [phone] * PT-INR [facility] (07/01/2024 1:11 PM CDT) Pathologist [facility] PT 13.6 12.1 - 14.8 Seconds 07/01/2024 1:56 PM CDT [facility] INR 1.1 See Comment 07/01/2024 1:56 PM CDT [facility] Comment:The suggested therap eutic [...] - COAGULATION OR DERABLES Performing Organization Address [facility]/ZIP Co de Phone Number [facility] [address] [place] [address], [facility] [phone] * (ABNORMAL) VITAMIN A (07/01/2024 1:11 PM CDT) Vitamin A 0.23(L) 0.30 - 1.20 mg/L 07/04/2024 9:14 AM CDT [facility] ([facility]) Retinyl Palmitate <0.02 0.00 - 0.10 mg/L 07/04/2024 9:14 AM CDT [facility] ([facility]) Interpretation Vitamin A See Note 07/04/2024 9:14 AM CDT [facility] ([facility]) Comment: Retinol greater than 0.3 mg/L is typically associated with adequate liver stores in adults, and is within normal limits for children. Retinol less than 0.10 mg/L may indicate depleted liver stores and severe deficiency. This test was developed and its performance characteristics determined by [employer] It has not been cleared or approved by the US Food and Drug Administration. This test was performed in a CLIA certified laboratory and is intended for clinical purposes. Performed By: [place] [address] Publication Distributor: Jay Reyna MD, PhD CLIA Number: [id number] Blood BLOOD SPECIMEN / Unknown Lab Venipuncture / Unknown 07/01/2024 1:11 PM CDT 07/01/2024 1:26 PM CDT Stan Celeste MD LAB - CHEMISTRY ETHEL STATON Performing Organization Address [facility]/ZIP Co de Phone Number [facility] ([facility]) [address] [place] [address] * (ABNORMAL) VITAMIN E (07/01/2024 1:11 PM CDT) Vitamin E Alpha Tocopherol 5.2(L) 5.5 - 18.0 mg/L 07/04/2024 9:14 AM CDT [facility] ([facility]) Comment: This test was developed and its performance characteristics determined by [employer] It has not been cleared or approved by the US Food and Drug Administration. This test was performed in a CLIA certified laboratory and is intended for clinical purposes. Vitamin E Gamma Tocopherol 0.6 0.0 - 6.0 mg/L 07/04/2024 9:14 AM CDT [facility] [employer] ([facility]) Comment: Performed By: [facility] [employer] [address] [place] [address] Publication Distributor: Jay Reyna MD, PhD CLIA Number: [id number] Blood BLOOD SPECIMEN / Unknown Lab Venipuncture / Unknown 07/01/2024 1:11 PM CDT 07/01/2024 1:26 PM CDT Stan Celeste MD LAB - CHEMISTRY ETHEL STATON Performing Organization Address City/[facility]/ZIP Co de Phone Number [facility] ([facility]) [address] [place] [address] * (ABNORMAL) VITAMIN D 25-HYDROXY (07/01/2024 1:11 PM CDT) Vitamin D, 25 Hydroxy 27.6(L) 30.0 - 80.0 ng/mL 07/01/2024 2:20 PM CDT [facility] Comment: The recommendations for 25-Hydroxy Vitamin [...] Celeste MD LAB - CHEMISTRY ETHEL STATON [facility] Organization Address [facility]/State/ZIP Co de Phone Number [address] [address], [facility] [phone] * CBC W AUTO DIFFERENTIAL (07/01/2024 1:11 PM CDT) Pathologist [facility] WBC 4.6 4.0 - 10.7 x10E9/L 07/01/2024 1:32 PM CDT [facility] RBC Count 4.22 3.90 - 5.20 x10E12/L 07/01/2024 1:32 PM CDT [facility] Hemoglobin 12.9 11.9 - 15.8 g/dL 07/01/2024 1:32 PM CDT [facility] Hematocrit 38.4 34.8 - 46.1 % 07/01/2024 1:32 PM CDT [facility] MCV 91.0 80.0 - 98.0 fL 07/01/2024 1:32 PM CDT [facility] MCH 30.6 26.7 - 33.6 pg 07/01/2024 1:32 PM [facility] MCHC 33.6 31.7 - 36.3 g/dL 07/01/2024 1:32 PM [facility] RDW-CV 12.0 11.3 - 14.8 % 07/01/2024 1:32 PM [facility] Platelet Count 201 150 - 420 x10E9/L 07/01/2024 1:32 PM [facility] MPV 10.6 7.8 - 11.4 fL 07/01/2024 1:32 PM [facility] Neutrophil % 42.1 41.0 - 74.0 % 07/01/2024 1:32 PM [facility] Lymphocyte % 45.8 17.0 - 47.0 % 07/01/2024 1:32 PM [facility] Monocyte % 6.9 3.0 - 11.0 % 07/01/2024 1:32 PM [facility] Eosinophil % 4.6 0.0 - 7.0 % 07/01/2024 1:32 PM [facility] Basophil % 0.4 0.0 - 1.6 % 07/01/2024 1:32 PM [facility] Immature Granulocytes % 0.2 0.0 - 1.0 % 07/01/2024 1:32 PM [facility] Neutrophil Absolute 1.94 1.60 - 7.50 x10E9/L 07/01/2024 1:32 PM [facility] Lymphocyte Absolute 2.11 1.00 - 4.40 x10E9/L 07/01/2024 1:32 PM [facility] Monocyte Absolute 0.32 0.15 - 1.00 x10E9/L 07/01/2024 1:32 PM [facility] Eosinophil Absolute 0.21 0.00 - 0.60 x10E9/L 07/01/2024 1:32 PM [facility] Basophil Absolute 0.02 0.00 - 0.13 x10E9/L 07/01/2024 1:32 PM [facility] Blood BLOOD SPECIMEN / Unknown Lab Venipuncture / Unknown 07/01/2024 1:11 PM CDT 07/01/2024 1:26 PM CDT Stan Celeste MD LAB - HEMATOLOGY ORD ERABLES [facility] [address] [place] [address], [facility] [phone] * (ABNORMAL) COMPREHENSIVE METABOLIC PANEL (07/01/2024 1:11 PM CDT) BUN 7 7 - 26 mg/dL 07/01/2024 2:02 PM [facility] Creatinine 0.74 0.56 - 0.96 mg/dL 07/01/2024 2:02 PM [facility] Sodium 138 136 - 145 mmol/L 07/01/2024 2:02 PM [facility] Potassium 3.6 3.5 - 4.5 mmol/L 07/01/2024 2:02 PM [facility] Chloride 110(H) 98 - 107 mmol/L 07/01/2024 2:02 PM [facility] CO2 22 22 - 29 mmol/L 07/01/2024 2:02 PM [facility] Glucose 129(H) 70 - 115 mg/dL 07/01/2024 2:02 PM [facility] Calcium 9.5 8.4 - 10.2 mg/dL 07/01/2024 2:02 PM [facility] Protein Total 7.2 6.0 - 8.3 g/dL 07/01/2024 2:02 PM [facility] Albumin 4.2 3.4 - 5.0 g/dL 07/01/2024 2:02 PM [facility] Bilirubin Total 0.5 0.2 - 1.2 mg/dL 07/01/2024 2:02 PM [facility] Alkaline Phosphatase 87 40 - 150 U/L 07/01/2024 2:02 PM [facility] ALT 22 5 - 55 U/L 07/01/2024 2:02 PM [facility] AST 26 5 - 34 U/L 07/01/2024 2:02 PM [facility] Anion Gap 6 6 - 16 07/01/2024 2:02 PM CDT [facility] BUN/Creatinine Ratio 9 7 - 23 07/01/2024 2:02 PM CDT [facility] Osmolality Calculated 286 275 - 295 mOsm/kg 07/01/2024 2:02 PM CDT [facility] Albumin/Globulin Ratio 1.4 1.1 - 2.3 07/01/2024 2:02 PM CDT [facility] eGFR by CKD-EPI >90 >=90 mL/min/1.7 3 m2 07/01/2024 2:02 PM CDT [facility] Blood BLOOD SPECIMEN / Unknown Lab Venipuncture / Unknown 07/01/2024 1:11 PM CDT 07/01/2024 1:26 PM CDT Stan Celeste MD LAB - CHEMISTRY ETHEL STATON Performing Organization Address City/[facility]/ZIP Co de Phone Number [address] [address], [facility] [phone] * GGT (07/01/2024 1:11 PM CDT) GGT 15 9 - 64 Units/L 07/01/2024 2:02 PM CDT [facility] Blood BLOOD SPECIMEN / Unknown Lab Venipuncture / Unknown 07/01/2024 1:11 PM CDT 07/01/2024 1:26 PM CDT Stan Celeste MD LAB - CHEMISTRY ORDDarshan STATON [facility] [address] [place] [address], [place] [phone] * IGE BLOOD (07/01/2024 1:11 PM CDT) IgE Total 27 <=214 kU/L 07/03/2024 6:33 PM CDT [employer] ([facility]) Comment: REFERENCE INTERVAL: Immunoglobulin E, Serum Access complete set of age- and/or gender-specific reference intervals for this test in the [employer] [facility] Test Directory ([employer]). Performed By: [employer] [address] [place], [place] [id number] Publication Distributor: Jay Reyna MD, PhD CLIA Number: [id number] Blood BLOOD SPECIMEN / Unknown Lab Venipuncture / Unknown 07/01/2024 1:11 PM CDT 07/01/2024 1:26 PM CDT Stan Celeste MD LAB - CHEMISTRY ETHEL STATON Performing Organization Address City/[facility]/ZIP Co de Phone Number [facility] ([facility]) [address] * GLUCOSE - POINT OF CARE (07/01/2024 10:56 AM CDT) Glucose WB/POC 78 70 - 106 mg/dL 07/01/2024 10:59 AM CDT [facility] Specimen Type Cap Fingerstick 2023 10:59 AM CDT [facility] Blood BLOOD SPECIMEN / Unknown 07/01/2024 10:56 AM CDT 07/01/2024 10:59 AM CDT Mildred Whitaker ASSEMBLER [employer]-INFORMATICS COORDINATOR LAB - POINT O F CARE ORDERABLES Performing Organization Address [facility] Co de Phone Number [facility] [address] [place] [phone] * CHLAMYDIA + GC AMPLIFIED PROBE (01/10/2023 5:02 PM CDT) Chlamydia Amplified Probe Negative Negative 01/10/2023 11:34 PM CDT [facility] GC Amplified Probe Negative Negative 01/10/2023 11:34 PM CDT [facility] Microbiology URINE / Unknown Collection / Unknown 01/10/2023 5:02 PM CDT 01/10/2023 5:20 PM CDT Narrative [facility] - 01/10/2023 11:34 PM CDT Results based on detection/no detection of ribosomal RNA by amplified method. Ayla Carmen MD LAB - MICROBIOLOGY O RDERABLES Performing Organization Address City/[facility]/ZIP Co de Phone Number [facility] [address] [place], [place] [address], [facility] [phone] * DEXA BONE DENSITY AXIAL SKELETON (09/28/2020 11:36 AM FRUIT RAISER) Anatomical Region Laterality Modality Radiographic Ani ging 09/28/2020 11:2 3 AM FRUIT RAISER Impressions 09/28/2020 1:30 PM FRUIT RAISER Normal bone density values for age. Z-score [...] at 1:30 PM Narrative 09/28/2020 1:30 PM FRUIT RAISER Dual x-ray absorptiometry was performed of the [...] on 09/28/2020 at 1:30 PM Mildred Whitaker ASSEMBLER [employer]-INFORMATICS COORDINATOR DEXA ORDERABL ES * CULTURE AFB+SMEAR (08/26/2013 12:01 PM FRUIT RAISER) Culture No Acid Fast Bacillus Isolated 10/07/2013 9:16 AM FRUIT RAISER [facility] AFB Smear No Acid Fast bacilli seen 10/07/2013 9:16 AM FRUIT RAISER [facility] Microbiology SPUTUM / Unknown 08/26/2013 12:01 PM FRUIT RAISER 08/26/2013 12:16 PM FRUIT RAISER Cedric Casas MD LAB - MICROBIOLOGY ORDERABLES [facility] [address] [place] [address], [facility] from Last 3 Months or Most [...] 8:14 PM 02/11/2021 12:00 PM Care Teams Technologies Division Chair Relationship Specialty Start Date End Date Em Solano DO [address] [facility] [place] [address] PCP - General Internal Medicine 10/18/23
--- OUTSIDE RECORDS SUMMARY | 2025-01-09 13:46 | XMS_ITS | Encounter Summary ---
Author Organization [facility] Address [address] [place] [address] Care Team Providers Care Movie Extra Name Role Phone Yas An MD Primary Care Provider [phone] Em Solano DO Primary Care Provider [phone] Encounter Details Date Type Department Care Team (Late st Contact Info) Description 01/19/2023 Telephone [facility] - [address] [address] Ayla Carmen MD [address] [place] [address] Social History Tobacco Use Types Packs/Day Years [...] 02/20 or after. Transferred mom to our stand in to discuss options. Will send update to [...] Description 01/21/2025 1:00 PM CDT Office Visit [facility] - Neurology [address] [facility], [facility] [place] [address] Patt Crain PA-C [address] [place] [address] documented as of this encounter Visit Diagnoses Not on filedocumented in this encounter Additional Health Concerns Infection Onset Date Last Indicated Resolved Time Cystic Fibrosis 07/04/2014 07/04/2014 MDRO 01/29/2018 07/30/2018 MRSA 09/23/2019 10/07/2024 COVID-19 Under Investigation 06/11/2024 06/11/2024 06/11/2024 11:25 AM CDT COVID-19 Confirmed 06/11/2024 06/11/2024 4:33 AM CDT documented as of this encounter Care Teams Movie Extra Relationship Specialty Start Date End Date Yas An MD [address] [facility] [address] [place] [address] PCP - General 05/01/18 10/17/23 Em Solano DO [address] OF [facility] [place] [address] PCP - General Internal Medicine 10/18/23 documented as of this encounter
--- OUTSIDE RECORDS SUMMARY | 2025-01-09 13:46 | XMS_ITS | Clinical Summary ---
Author Organization [facility] System Address [address] [place] [address] Care Team Providers Care Software Engineering Supervisor Name Role Phone Greyson Fine Primary Care Provider [phone] Allergies Active Allergy Reactions Criticality Noted Date [...] muscle every 3 (three) months. Managed by [employer] Active amitriptyline (ELAVIL) 50 MG tabletIndication s:Migraine with aura and without status migrainosus, not intractable,Depr ession, unspecified depression type,Insomnia, unspecified type Take 1 tablet (50 mg total) by mouth nightly at bedtime. 30 tablet 1 09/06/2023 Active Active Problems Problem Noted Date Diagnosed Date Anxiety 09/05/2023 Depression, unspecified depression type 09/05/20 Cystic fibrosis ([facility]) 07/31/2023 History of kidney stones 07/31/2023 Migraine [...] Comments Blood Pressure 90/59 09/06/2023 9:40 AM [employer] PRESS TENDER Pulse 84 09/06/2023 9:40 AM [employer]YROTECH[employer] PRESS TENDER Temperature 36.4 C (97.6 F) 09/06/2023 9:40 AM [employer]YROTECH[employer] PRESS TENDER Respiratory Rate 12 09/06/2023 9:40 AM PYROTECH[employer] PRESS TENDER Oxygen Saturation 100% 09/06/2023 9:40 AM P[employer]OTECH[employer] PRESS TENDER Inhaled Oxygen Concentration - - Weight 63 kg (139 lb) 09/06/2023 9:40 AM PYROTECH[employer] PRESS TENDER Height 165.1 cm (5' 5 ) 09/06/2023 9:40 AM [employer]CH[employer] PRESS TENDER Body Mass Index 23.13 09/06/2023 9:40 AM P[employer]OTECH[employer] PRESS TENDER Body Mass Index Percentile 69.00% 09/06/2023 9:4 0 AM PYROTECHN[employer] PRESS TENDER Growth Chart: CDC (Girls, 2- 20 Years) Plan of Treatment Health Maintenance Due Date Last Done Comments Meningococcal B Vaccine (1 of 2 - Standard) 2021 Hepatitis C 2023 COVID-19 Vaccine ( - season) 2024 04/29/2021, 04/07/2021 Influenza Adult (#1) 2024 08/07/2023, 07/04/2022, 11/30/2021, Additional history exists Annual Physical 07/31/2024 07/31/2023 PHQ-2 (Physician [place]) 10/09/2024 09/06/2023 DTaP, Tdap and Td Vaccines [...] to complete this topic Insurance Care Teams Software Engineering Supervisor Relationship Specialty [place] [address] [place] [address] PCP - General Physician Case Manager Medical 12/19/23
[2025-01-09 13:48] LABS: Alanine Aminotransferase 30 U/L (6-35); Albumin Level 4.2 g/dL (3.7-5.6); Alkaline Phosphatase 64 U/L (45-116); Anion Gap 8 mmol/L (4-12); Aspartate Amino Transferase 27 U/L (14-36); Bilirubin,Total 0.5 mg/dL (0.2-1.3); Blood Urea Nitrogen 7 mg/dL (8-21); Calcium 9.4 mg/dL (8.9-10.7); Carbon Dioxide 26 mmol/L (22-30); Chloride 104 mmol/L (98-107); Estimated CRCL calculation 94 ml/min; Estimated Glomerular Filt Rate > 60; Glucose 73 mg/dL (65-110); Potassium 4.2 mmol/L (3.4-5.0); Sodium 138 mmol/L (134-143)
[2025-01-09 13:53] LABS: Add Urine Microscopic? NO; Appearance Urine Clear (Clear); Bilirubin Urine Negative (Negative); Blood Urine Negative (Negative); Color Urine Yellow (Yellow); Glucose Urine UA Negative (Negative); Ketones Urine Negative (Negative); Leukocyte Esterase Ur Negative LEU/UL (Negative); Nitrate Urine Negative (Negative); Protein Urine Negative (Negative); Specific Grav Ur 1.015 (1.001-1.035); Urobilinogen Urine 0.2 mg/dL (<2.0); pH Urine 6.5 (5.0-9.0)
[2025-01-09 14:05] LABS: Lipase < 10 U/L (23-300)
--- NOTE | 2025-01-09 14:24 | ED_ITS ---
HPI - Abdominal Pain General Chief Complaint: Abdominal Pain Stated Complaint: RUQ pain, vomiting-sent by PMD Time Seen by Provider: 01/09/25 13:09 Source: patient Mode of arrival: ambulatory Limitations: no limitations History of Present Illness HPI narrative: Patient is a 19 y/o female, with PMH of cystic fibrosis, who presents to the ED with c/o R sided abdominal pain. Patient reports she has been having intermittent pain in her R upper abdomen, radiating down to her R lower abdomen for the past 2 months. Pain is worse with eating/drinking. She has been taking Ibuprofen and took a leftover Hydrocodone for the pain w/o improvement. Reports intermittent nausea, denies vomiting, diarrhea, constipation, fevers. Denies urinary complaints. Went to her PCP today and was referred to the ED for further evaluation. Related Data Home Medications ?Medication ?Instructions ?Recorded ?Confirmed ?Last Taken ?Type dornase sergio 1 mg/mL solution for 1 mg inhalation USEASDIRECTD 06/26/21 04/18/24 Unknown History inhalation (Pulmozyme) elexacaftor 100 mg-tezacaf 1 ea PO BID 06/26/21 04/18/24 Unknown History 50mg-ivacaf 75mg(d)/ivacaf 150mg(n) tablets (Trikafta) escitalopram oxalate 10 mg tablet 10 mg PO DAILY 06/26/21 04/18/24 Unknown History bopvpe-ocboibbz-fayfapo 1 cap PO QID 06/26/21 04/18/24 Unknown History 36,000-114,000-180,000 unit capsule,delay rel (Creon) pediatric multivitamin no.61-vit 1 cap PO DAILY 06/26/21 04/18/24 Unknown History D3 3,000 unit-vit K 800 mcg capsule (MVW Complete Formulation D) amoxicillin 500 mg-potassium tablet 12/30/24 Unknown History clavulanate 125 mg tablet azithromycin 500 mg tablet mg 12/30/24 Unknown History venlafaxine 150 mg mg PO 12/30/24 Unknown History capsule,extended release 24 hr Allergies Allergy/AdvReac Type Severity Reaction Status Date / Time cefixime Allergy Unknown Unknown Verified 01/09/25 13:03 Review of Systems 2 Review of Systems: All systems reviewed & are unremarkable except as noted in HPI. All systems reviewed & are unremarkable except as noted in HPI and below PMFSH Past Medical History Medical History Neck pain Anxiety and depression Cystic fibrosis Kidney stone Surgical History Surgical History History of tonsillectomy and adenoidectomy History of placement of ear tubes History of lithotripsy Family History Family History Father Family history non-contributory Social History Social History Smoking status: Never smoker Substance use type: does not use Gender identity (if verbalized by the patient): Female Sexual Orientation (if Verbalized by the Patient): Straight or Heterosexual Spiritual care concerns: No Exam 2 Narrative: GENERAL: Well appearing, thin, non-toxic, in no acute distress. HEAD: Normocephalic, atraumatic. RESPIRATORY: Airway patent, respirations nonlabored. Clear to auscultation bilaterally, no rales, rhonchi, wheezing. CARDIOVASCULAR: Regular rate and rhythm without murmurs, rubs, or gallops. ABDOMINAL: Soft, mild tenderness to palpation in RUQ, R mid abdomen, nondistended. Normoactive BS. MUSCULOSKELETAL: Moves all extremities. No gross deformities. SKIN: Warm, dry, normal color. NEURO: A&O X3. Speech clear. PSYCHIATRIC: Appropriate mood and affect. Normal interaction. Course Vital Signs Vital signs: Vital Signs Temperature 98 F 01/09/25 13:03 Pulse Rate 73 01/09/25 13:03 Respiratory Rate 18 01/09/25 13:03 Blood Pressure 101/59 L 01/09/25 13:03 Pulse Oximetry 100 01/09/25 13:03 Oxygen Delivery Room Air 01/09/25 13:03 Temperature 98 F 01/09/25 13:03 Pulse Rate 73 01/09/25 13:03 Respiratory Rate 18 01/09/25 13:03 Blood Pressure 101/59 L 01/09/25 13:03 Pulse Oximetry 100 01/09/25 13:03 Oxygen Delivery Room Air 01/09/25 13:03 MDM - Abdominal Pain MDM Narrative Medical decision making narrative: Patient presented to ED with a history right-sided abdominal pain, intermittent nausea. VSS upon arrival. Basic laboratory studies are unremarkable. No leukocytosis or anemia. Stable electrolytes. Normal LFTs and lipase. UA is clear. Urine is negative. CT scan of abdomen/pelvis was obtained and showing moderate to large amount of constipation. No other acute findings. Bilateral renal stones. No ureterolithiasis. CF findings. Right upper quadrant ultrasound was obtained and unremarkable. Discussed lab and imaging findings with patient. Feel she is safe for discharge home at this time. Discussed further constipation management at home, pain control, recommended close follow- up with PCP for further evaluation. Discussed strict return precautions. Patient in agreement with plan. Feels comfortable going home. Discharged in stable condition. Medical Records Attestation: I reviewed the patient's medical records. Lab Data Attestation: I reviewed the patient's lab results. 01/09/25 13:28 01/09/25 13:28 Labs: Lab Results 01/09/25 01/09/25 01/09/25 Range/Units 13:28 13:38 13:44 WBC 6.1 (4.5-10.0) K/mm3 RBC 4.13 L (4.2-5.4) M/mm3 Hgb 12.6 (12.0-15.0) g/dL Hct 38.5 (37.0-47.0) % MCV 93.2 (80-100) fl MCH 30.5 (26-34) pg MCHC 32.7 (32-36) g/dl RDW 13.1 (11.5-14.5) % Plt Count 253 (150-375) k/mm3 MPV 10.7 H (7.4-10.4) fl Immature Gran % (Auto) 0.5 (0-0.5) % Neut % (Auto) 50.7 (45.5-73.1) % Lymph % (Auto) 37.1 (18.3-44.2) % [place] % (Auto) 8.6 H (2.6-8.5) % Eos % (Auto) 2.8 (0-4.4) % Baso % (Auto) 0.3 (0.2-1.2) % Lymph # (Auto) 2.25 (0.9-3.2) K/mm3 [place] # (Auto) 0.5 (0.1-0.6) K/mm3 Eos # (Auto) 0.2 (0-0.3) K/mm3 Baso # (Auto) 0.0 (0.0-0.1) K/mm3 Abs Immat Gran (auto) 0.03 (0.00-0.031) K/mm3 Absolute Neuts (auto) 3.1 (1.3-6.7) K/mm3 Absolute Nucleated RBC 0.000 (0.0-0.012) K/mm3 Nucleated RBC % 0.0 (0.0-0.2) % Sodium 138 (134-143) mmol/L Potassium 4.2 (3.4-5.0) mmol/L Chloride 104 (98-107) mmol/L Carbon Dioxide 26 (22-30) mmol/L Anion Gap 8 (4-12) mmol/L BUN 7 L (8-21) mg/dL Creatinine 0.70 (0.7-1.0) mg/dL Estim Creat Clear Calc 94 ml/min Estimated GFR > 60 (59 - ) Glucose 73 (65-110) mg/dL Calcium 9.4 (8.9-10.7) mg/dL Total Bilirubin 0.5 (0.2-1.3) mg/dL AST 27 (14-36) U/L ALT 30 (6-35) U/L Alkaline Phosphatase 64 (45-116) U/L Total Protein 7.0 (6.3-8.6) g/dL Albumin 4.2 (3.7-5.6) g/dL Lipase < 10 L (23-300) U/L Urine Color Yellow (Yellow) Urine Appearance Clear (Clear) Urine pH 6.5 (5.0-9.0) Ur Specific [place] 1.015 (1.001-1.035) Urine Protein Negative (Negative) mg/dL Urine Glucose (UA) Negative (Negative) mg/dL Urine Ketones Negative (Negative) mg/dL Ur Blood (Man) Negative (Negative) Urine Nitrate Negative (Negative) Urine Bilirubin Negative (Negative) Urine Urobilinogen 0.2 (<2.0) mg/dL Leukocyte Esterase Rfl Negative (Negative) ENEDINA/UL POC Urine HCG, Qual Negative (Negative) Imaging Data Attestation: I personally reviewed and interpreted this imaging study as follows: Radiologist's impression: ITS Impressions Abdomen/Pelvis CT 01/09/25 14:37 IMPRESSION: 1. Moderate to large amount of colonic stool which can be seen in setting of constipation. No other acute intra-abdominal/pelvic process. 2. Bilateral nonobstructing nephrolithiasis. 3. Severe fatty atrophy of the pancreas which given patient age is strongly suggestive of cystic fibrosis. Abdomen Ultrasound 01/09/25 15:42 IMPRESSION: Normal limited abdominal ultrasound findings. Discharge Plan Discharge Clinical Impression: Right sided abdominal pain Constipation Qualifiers: Constipation type: unspecified constipation type Qualified Code(s): K59.00 - Constipation, unspecified Patient Disposition: Home, Self-Care Condition: Stable Instructions: Antibiotic Form, Constipation (ED), High Fiber Diet (ED) Additional Instructions: Your workup here was reassuring. Your imaging showed evidence of constipation. Recommend MiraLax and/or Dulcolax as needed up to twice a day for the next 1 week for constipation. Stay very well hydrated. Recommend high-fiber diet. Utilize Zofran as needed for nausea. Follow-up closely with your primary care doctor for further evaluation. Return to the ED if you experience worsening or severe pain, unable to keep down food or drink, persistent fevers, difficulty breathing, or any other symptoms of concern. Patient Language: Greek Prescriptions: New ondansetron 4 mg tablet,disintegrating 4 mg PO Q8H PRN (Reason: nausea and vomiting) Qty: 15 0RF No Action venlafaxine 150 mg capsule,extended release 24hr PO amoxicillin-pot clavulanate 500-125 mg tablet azithromycin 500 mg tablet hydrocodone-acetaminophen 5-325 mg tablet 1 tablet PO Q8H PRN (Reason: pain) Qty: 6 0RF Pulmozyme 1 mg/mL solution 1 mg INHALATION USEASDIRECTD escitalopram oxalate 10 mg tablet 10 mg PO DAILY Creon 36,000-114,000- 180,000 unit Capsule,Delayed Release(Dr/Ec) 1 cap PO QID Rx Instructions: 5 with meals and 4 with snacks MVW Complete Formulation D3000 3,000-800 unit-mcg capsule 1 cap PO DAILY Trikafta 100-50-75 mg(d) /150 mg (n) tablets, sequential 1 ea PO BID hydrocodone-acetaminophen 5-325 mg tablet 1 tablet PO Q12H PRN (Reason: pain, severe) Qty: 10 0RF albuterol sulfate 90 mcg/actuation HFA aerosol inhaler 1 inh inhalation QID PRN (Reason: shortness of breath or wheezing) Qty: 8.5 1RF doxycycline monohydrate 100 mg capsule 100 mg PO BID Qty: 20 0RF Follow-up/Referrals: Yas An MD [Primary Care Provider] - Time of Disposition: 16:22
[2025-01-09] MEDS: MORPHINE SULFATE (*CRX) 2 MG/ML INJ IV PUSH (14:37)
[2025-01-09] MEDS: ONDANSETRON INJ 4 MG/2 ML VIAL IV PUSH (14:37)
[2025-01-09] MEDS: KETOROLAC 30 MG/ML VIAL (*BKC) IV PUSH (16:22)
== END 2025-01-09 17:04 | disposition home or self-care (01) ==
PROVIDERS: Emergency Provider Physician Assistant; PCP Pediatrics
DX: K59.00 Constipation, unspecified (principal); E84.9 Cystic fibrosis, unspecified; F41.9 Anxiety disorder, unspecified; F32.A Depression, unspecified; Z87.442 Personal history of urinary calculi; N20.0 Calculus of kidney; Z79.899 Other long term (current) drug therapy
CPT/HCPCS: 36415; 74177; 76705; 80053; 81003; 81025; 83690; 85025; 96374; 96375; 99284; J1885; J2270; J2405; Q9967

== ENCOUNTER 2025-02-14 09:31 | Emergency (ER) | payer BC, SELFPAY ==
--- NOTE | ~2025-02-14 | CT_ITS ---
Non-contrast CT scan of the Abdomen and Pelvis Clinical indication: Flank pain Technique: 2.5 mm axial scans were obtained through the abdomen and pelvis without intravenous or or al contrast. Dose reduction technique was used on this scan by utilizing automated exposure control a nd iterative reconstruction technique. The dose-length product (DLP) was 188.95 mGy-cm. COMPARISON: 01/09/2025 Findings: Images through the lung bases reveal no abnormalities. For millimeter nonobstructing right renal stone present. 3 mm nonobstructing left renal stone present . No ureteral stone or hydronephrosis on either side. The liver, spleen, gallbladder, and adrenals appear normal. Severe fatty atrophy of the pancreas aga in noted. There is no aortic aneurysm. There is no evidence of bowel obstruction. Images through the pelvis were performed. There is no evidence of ascites or lymphadenopathy. Urinary bladder unremarkable. No pelvic mass seen. Impression: Nonobstructing small renal stones, as detailed above. No ureteral stone or hydronephrosis. Severe fatty atrophy of the pancreas again noted. Reviewed, dictated and finalized at [facility]. Impression: Nonobstructing small renal stones, as detailed above. No ureteral stone or hydr onephrosis. Severe fatty atrophy of the pancreas again noted.
--- OUTSIDE RECORDS SUMMARY | 2025-02-14 09:37 | XMS_ITS | Clinical Summary ---
Author Organization [facility] Address [address] [place] [address] Care Team Providers Care Farm Technician Name Role Phone Em Solano DO Primary Care Provider [phone] [facility],non-owned Affiliates and Associated Physician Practices is amultiple site organization consisting of ambulatory clinics and hospital sitesin [place], [place], [place] and [place]. This disclosure is being madepursuant to the Care Everywhere program and may not contain all information available regarding this patient. Last updated 18.[facility] Allergies Active Allergy Reactions Criticality Noted Date Comments Cefixime Rash High 12/09/2010 Medications * This document contains information received from the source organization and may not represent a complete record from that organization. * Be aware that medications may not be up to date on this document. Alwaysverify current medications with the patient. Calcium Citrate 250 MG Take 1 tablet by mouth once daily 06/03/20 19 Active multivitamin (MVW COMPLETE FORMULATION D5000) capsule Take 1 capsule by mouth 2 times daily with morning and evening meal 60 capsule 5 08/14/20 20 Active Cholecalciferol (VITAMIN D3 PO) Take 2,000 Units by mouth once daily Active ProAir HFA 108 (90 Base) MCG/ACT inhaler INHALE 2 PUFFS BY MOUTH EVERY 4 HOURS NEEDED FOR WHEEZING 8.5 g 3 07/04/20 22 Active esomeprazole (NexIUM) 40 MG capsuleIndication s:Vomiting Take 1 (one) capsule by mouth 2 times daily Reasons: Vomiting 60 capsule 3 08/05/20 24 Active Additional Information Patient not taking.Reported on 10/07/2024 Howard Podhaler 28 MG INHALE 4 CAPSULES VIA PODHALER TWO TIMES DAILY. ALTERNATE 28 DAYS ON AND 28 DAYS OFF CYCLE. 224 capsule 3 08/19/20 24 Active azithromycin (Zithromax) 500 MG tablet TAKE 1 TABLET BY MOUTH EVERY MONDAY, MONDAY, AND MONDAY 12 tablet 5 09/19/20 24 Active venlafaxine XR 24hr (Effexor XR) 75 MG capsule Take 1 (one) capsule by mouth daily with breakfast Active dornase sergio (Pulmozyme) 2.5 MG/2.5ML nebulizer solution Inhale 2.5 mL by mouth once daily 75 mL 11 10/07/20 24 Active sodium chloride, Inhalant, 7 % nebulizer solution Inhale 4 mL by mouth 2 times daily 240 mL 11 10/07/20 24 Active Multiple Vitamins-Minerals (DEKAs plus) capsule Take 1 (one) capsule by mouth once daily 30 capsule 11 10/07/20 24 Active Trikafta 100-50-75 & 150 MG tablet TAKE 2 ORANGE TABLETS IN THE MORNING AND 1 BLUE TABLET IN THE EVENING APPROXIMATELY 12 HOURS APART. TAKE WITH FAT-CONTAINING FOOD 252 tablet 10/14/19 25 Active pancrelipase (Creon) 42013-707741 units capsuleIndication s:Pancreatic insufficiency (HCC) TAKE 3 CAPSULES BY MOUTH THREE TIMES DAILY WITH MEALS AND 2 CAPSULES WITH SNACKS 450 capsule 2 11/07/19 25 Active Active Problems Patient Care Coordination No te Formatting of this note migh t be different from the original. Do you have any cultural preferences or concerns? 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 VCD Problem Noted Date Diagnosed Date Flu-like symptoms 06/11/2024 COVID-19 06/11/2024 Seizures 06/11/2024 Depression 09/05/2023 11/20/2023 History of kidney stones 07/31/2023 02/12/2 024 Migraine with aura and witho ut [...] - nephrology appointment outpatient 03/13/23 at 3PM ([phone] option 2 for reschedule) Social: mother present [...] med) - Consult to psychology for CF REALTY LOAN SPECIALIST: - consult adolescent and OBGYN for spotting [...] albuterol. Assessment & Plan (09/06/2022 7:18 AM SKEIN YARN DYER HELPER): Tamara has little sensation of improvement with [...] 06/26/2021 Assessment & Plan (08/27/2021 2:21 PM SKEIN YARN DYER HELPER): Tamara is a 16 year female with [...] 02/24/2021 Assessment & Plan (09/02/2021 11:01 PM SKEIN YARN DYER HELPER): A&P - status post cystoscopy and left [...] - Urine trichomonas - Discussed with pediatric table worker, Dr. Marie, who recommends IUD removal Assessment [...] Obtain urine trichomonas - Discussed with pediatric table worker, Dr. 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 Assessment & Plan (09/06/2022 7:31 AM SKEIN YARN DYER HELPER): CF lung disease- Tamara does not appear [...] well. Assessment & Plan (10/19/2021 6:58 AM SKEIN YARN DYER HELPER): CF lung disease- Tamara is doing well [...] has had the influenza vaccine for the 6191-6186 season. She has had two doses of [...] Exacerbation Score: 1 Quadrivalent Influenza vaccine for season was given today. She is fully vaccinated [...] 0 Assessment & Plan (09/28/2020 10:38 AM SKEIN YARN DYER HELPER): CF lung disease- Tamara is doing well [...] described the measures we have taken at [facility] in response to this crisis and the [...] CF physicians, nurses, respiratory therapists, dietitian, social scientist, psychologist, and pharmacist. Assessment & Plan (08/04/2020 [...] described the measures we have taken at [facility] in response to this crisis and the efforts to minimize exposure if the patient needs to be seen in person or in the ED. Assessment & Plan (09/23/2019 9:30 AM SKEIN YARN DYER HELPER): CF lung disease- Tamara is doing well [...] 09/23/2019.. No changes recommended at this time. Trikafta- As noted, started this the 3rd week in August. As per recommendations, will obtain screening LFT's.. The patient was discussed in our multidisciplinary team meeting which includes the other CF physicians, nurses, respiratory therapists, dietitian, social scientist, psychologist, and pharmacist. Assessment & Plan (06/03/2019 [...] season. Assessment & Plan (11/27/2018 8:18 AM SKEIN YARN DYER HELPER): CF lung disease- Tamara is doing well [...] findings on new therapy from the [place] Cystic Fibrosis conference last week. Assessment & [...] a 67 %ile (Z= 0.43) based on CDC 2-20 Years BMI-for-age data [...] time. Assessment & Plan (10/30/2017 2:05 PM SKEIN YARN DYER HELPER): CF lung disease- Tamara is doing well [...] time. Assessment & Plan (11/04/2016 12:08 PM SKEIN YARN DYER HELPER): CF lung disease- Tamara is doing well [...] illness. Assessment & Plan (09/12/2016 10:08 AM SKEIN YARN DYER HELPER): CF lung disease- Tamara is doing well [...] time. Assessment & Plan (11/02/2015 10:13 AM SKEIN YARN DYER HELPER): CF lung disease- Tamara is doing well [...] time. Assessment & Plan (08/31/2015 10:50 AM SKEIN YARN DYER HELPER): CF lung disease- Tamara is doing well [...] 11/30/2015 Assessment & Plan (11/02/2015 10:15 AM SKEIN YARN DYER HELPER): I think that this is of viral [...] us. Assessment & Plan (11/02/2015 10:17 AM SKEIN YARN DYER HELPER): Vocal Cord Dysfunction - The incomplete/poor response [...] Encounters Date Type Department Care Team Description 01/21/2025 Orders Only [facility] - Pulmonology [address] [facility] [place] [id number] Luciana Blunt RN Cystic fibrosis ([facility]) 12/06/2024 Telephone [facility] Cystic Fibrosis [address] [place] [address] Obdulia Blackwood CPhT Medication Prior Auth Request from Last 3 Months Immunizations Immunization Administration Dates Next Due DTaP VACCINE IM [...] Recorded Patient Health Questionnaire-2 Score 0 08/05/2024 Comments No Sex and Gender Information Value Date Recorded Sex Assigned at Not on file Legal Sex Female 5:44 AM SKEIN YARN DYER HELPER Gender Identity Not on file Sexual Orientation Not on file Last Filed Vital Signs Vital Sign Reading Time Taken Comments Blood Pressure 96/64 10/07/2024 8:36 AM SKEIN YARN DYER HELPER Pulse 72 10/07/2024 8:36 AM SKEIN YARN DYER HELPER Temperature 36.6 C (97.8 F) 08/05/2024 10:39 AM CDT Respiratory Rate 17 10/07/2024 8:36 AM SKEIN YARN DYER HELPER Oxygen Saturation 94% 10/07/2024 8:36 AM SKEIN YARN DYER HELPER Inhaled Oxygen Concentration 100% 02/21/2023 2 :15 PM CDT Weight 64 kg (141 lb 3.2 oz) 10/07/2024 8:36 AM SKEIN YARN DYER HELPER Height 162.6 cm (5' 4 ) 10/07/2024 8:36 AM SKEIN YARN DYER HELPER Body Mass Index 24.24 10/07/2024 8:36 AM SKEIN YARN DYER HELPER Plan of Treatment Upcoming Encounters Date Type Department Care Team (Late st Contact Info) Description 05/05/2025 10:30 AM CDT Appointment [facility] PFT [address] [place] [address] 05/05/2025 11:00 AM CDT Office Visit [facility] - Pulmonology [address] [facility] [place] [address] Chong Calvillo MD [address] [facility] [address] [facility] [address] Health Maintenance Due Date Last Done Comments [...] history exists Medical Devices Explanted Type Area Packaging Designer Device Identifier Shelf Expiration Date Model / Serial / Lot Set Stent 24cm 5fr Universa .038in 3cm 2 Explanted:Qty: 1 on 06/29/2021 at [facility] Left: Ureter [employer] 02/23/2023 [id number] / / [id number] Set Stent 26cm 5fr Universa 2 Pgtl Crv Implanted:Qty: 1 on 06/29/2021 by Kashmir Wheat MD at [facility] Explanted:Qty: 1 on 08/04/2021 by Kashmir Wheat MD at [facility] Left: Ureter [employer] 01/31/2024 [id number] / / [id number] Firm Ureteral Stent And Positioner Implanted:Qty: 1 on 08/04/2021 by Kashmir Wheat MD at [facility] Explanted:Qty: 1 on 08/24/2021 by Kashmir Wheat MD at [facility] Left: Ureter [employer] 04/06/2024 [id number] / / [id number] Description:NO CHARGE ITEM, TRIAL stent removed intact and discarded Procedures Procedure Name Priority Date/Time Associated Diagnosis Comments CULTURE CYSTIC FIBROSIS PULMONARY Routine 10/07/2024 9:51 AM SKEIN YARN DYER HELPER Cystic fibrosis CBC W AUTO DIFFERENTIAL Routine 07/01/2024 1:11 PM CDT Cystic fibrosis-N526xhw/F 508del COMPREHENSIVE METABOLIC PANEL Routine 07/01/2024 1:11 PM CDT Cystic fibrosis-Y921lqb/F 508del IGE BLOOD Routine 07/01/2024 1:11 PM CDT Cystic fibrosis-I146wnr/F 508del PT-INR [facility] Routine 07/01/2024 1:11 PM CDT Cystic fibrosis-K334fpo/F 508del VITAMIN E Routine 07/01/2024 1:11 PM CDT Cystic fibrosis-D155aea/F 508del VITAMIN D 25-HYDROXY Routine 07/01/2024 1:11 PM CDT Cystic fibrosis-Z619dac/F 508del VITAMIN A Routine 07/01/2024 1:11 PM CDT Cystic fibrosis-X221rok/F 508del GGT Routine 07/01/2024 1:11 PM CDT Cystic fibrosis-F797cov/F 508del GLUCOSE - POINT OF CARE Routine 07/01/2024 10:56 AM CDT CHLAMYDIA + GC AMPLIFIED PROBE Routine 01/10/2023 5:02 PM CDT DEXA BONE DENSITY AXIAL SKELETON Routine 09/28/2020 11:36 AM SKEIN YARN DYER HELPER Cystic fibrosis CULTURE AFB+SMEAR Routine 08/26/2013 12: 01 PM SKEIN YARN DYER HELPER Cystic fibrosis from Last 3 Months or Most Recently Relevant to Health Maintenance Results * (ABNORMAL) CULTURE CYSTIC FIBROSIS PULMONARY (10/07/2024 9:51 AM SKEIN YARN DYER HELPER) Culture Moderate normal oropharyngeal karin CAIN 10/12/2024 2:50 PM SKEIN YARN DYER HELPER [facility] Culture Rare Staphylococcus aureus methicillin-resista nt (MRSA)(A) CAIN 10/12/2024 2:50 [address] SKEIN YARN DYER HELPER [facility] Comment:Staphylococcus aureu s methicillin-resistant (MRSA) detected by penicillin binding protein immunoassay. Contact precautions required. Conventional antibiotic susceptibility testing to follow. Culture Rare Pseudomonas aeruginosa (mucoid)(A) 10/12/2024 2:50 PM SKEIN YARN DYER HELPER [facility] Gram Stain No organisms seen 025 2:50 PM SKEIN YARN DYER HELPER [facility] Gram Stain Rare Polymorphonuclear cells 10/12/2024 2:50 PM SKEIN YARN DYER HELPER [facility] Microbiology SPUTUM SPECIMEN OBTAINED BY SPUTUM INDUCTION / Unknown Collection / Unknown 10/07/2024 9:51 AM SKEIN YARN DYER HELPER 10/07/2024 3:51 PM SKEIN YARN DYER HELPER Narrative [facility] - 10/12/2024 2:50 PM SKEIN YARN DYER HELPER Methicillin-resistant Staphylococci (MRSA) are resistant to all [...] resistant ranges. Chong Calvillo MD LAB - MICROBIOLOGY ETHEL STATON Final Result [facility] [address] [place] [address], [facility] [phone] * PT-INR [facility] (07/01/2024 1:11 PM CDT) PT 13.6 12.1 - 14.8 Seconds 07/01/2024 1:56 PM CDT [facility] INR 1.1 See Comment 07/01/2024 1:56 PM CDT [facility] Comment:The suggested therap eutic range for standard coumadin (warfarin) therapy is an INR of 2.0-3.0. For high-risk patients (Mechanical Mitral Valve Prosthesis, etc.), the suggested prophylactic therapeutic range is an INR of 2.5-3.5. Blood BLOOD SPECIMEN / Unknown Lab Venipuncture / Unknown 07/01/2024 1:11 PM CDT 07/01/2024 1:26 PM CDT Stan Celeste MD LAB - COAGULATION ORDERABLES Fin al Result [facility] [address] [place] [address], [facility] [phone] * (ABNORMAL) VITAMIN A (07/01/2024 1:11 PM CDT) Vitamin A 0.23(L) 0.30 - 1.20 mg/L 07/04/2024 9:14 AM CDT [facility] ([facility]) Retinyl Palmitate <0.02 0.00 - 0.10 mg/L 07/04/2024 9:14 AM CDT [facility] ([facility]) Interpretation Vitamin A See Note 07/04/2024 9:14 AM CDT [facility] ([facility]) Comment: Retinol greater than 0.3 mg/L is typically associated with adequate liver stores in adults, and is within normal limits for children. Retinol less than 0.10 mg/L may indicate depleted liver stores and severe deficiency. This test was developed and its performance characteristics determined by [facility]. It has not been cleared or approved by the US Food and Drug Administration. This test was performed in a CLIA certified laboratory and is intended for clinical purposes. Performed By: [place] [address] Auto Suspension And Steering Mechanic: Jay Reyna MD, PhD CLIA Number: [id number] Blood BLOOD SPECIMEN / Unknown Lab Venipuncture / Unknown 07/01/2024 1:11 PM CDT 07/01/2024 1:26 PM CDT Stan Celeste MD LAB - CHEMISTRY ORDERABLES Final Result [facility]) [address] [place] [address] * (ABNORMAL) VITAMIN E (07/01/2024 1:11 PM CDT) Vitamin E Alpha Tocopherol 5.2(L) 5.5 - 18.0 mg/L 07/04/2024 9:14 AM CDT [facility] ([facility]) Comment: This test was developed and its performance characteristics determined by [facility]. It has not been cleared or approved by the US Food and Drug Administration. This test was performed in a CLIA certified laboratory and is intended for clinical purposes. Vitamin E Gamma Tocopherol 0.6 0.0 - 6.0 mg/L 07/04/2024 9:14 AM CDT [facility] ([facility]) Comment: Performed By: [facility] [facility] [address] [place] [address] Auto Suspension And Steering Mechanic: Jay Reyna MD, PhD CLIA Number: [id number] Blood BLOOD SPECIMEN / Unknown Lab Venipuncture / Unknown 07/01/2024 1:11 PM CDT 07/01/2024 1:26 PM CDT Stan Celeste MD LAB - CHEMISTRY ORDERABLES Final Result [facility] ([facility]) [address] [place] [address], [facility] * (ABNORMAL) VITAMIN D 25-HYDROXY (07/01/2024 1:11 PM CDT) Vitamin D, 25 Hydroxy 27.6(L) 30.0 - 80.0 ng/mL 07/01/2024 2:20 PM CDT [facility] Comment: The recommendations for 25-Hydroxy Vitamin [...] 1:11 PM CDT 07/01/2024 1:26 PM CDT us Stan Celeste MD LAB - CHEMISTRY ORDERABLES Final Result [facility] [address] [place] [address], [facility] [phone] * CBC W AUTO DIFFERENTIAL (07/01/2024 1:11 PM CDT) WBC 4.6 4.0 - 10.7 x10E9/L 07/01/2024 1:32 PM CDT [facility] RBC Count 4.22 3.90 - 5.20 x10E12/L 07/01/2024 1:32 PM CDT [facility] Hemoglobin 12.9 11.9 - 15.8 g/dL 07/01/2024 1:32 PM CDT [facility] Hematocrit 38.4 34.8 - 46.1 % 07/01/2024 1:32 PM [facility] MCV 91.0 80.0 - 98.0 fL 07/01/2024 1:32 PM [facility] MCH 30.6 26.7 - 33.6 pg 07/01/2024 1:32 PM [facility] MCHC 33.6 31.7 - 36.3 g/dL 07/01/2024 1:32 PM [facility] RDW-CV 12.0 11.3 - 14.8 % 07/01/2024 1:32 PM [facility] Platelet Count 201 150 - 420 x10E9/L 07/01/2024 1:32 PM [facility] MPV 10.6 7.8 - 11.4 fL 07/01/2024 1:32 PM [facility] Neutrophil % 42.1 41.0 - 74.0 % 07/01/2024 1:32 PM [facility] Lymphocyte % 45.8 17.0 - 47.0 % 07/01/2024 1:32 PM [facility] Monocyte % 6.9 3.0 - 11.0 % 07/01/2024 1:32 PM [facility] Eosinophil % 4.6 0.0 - 7.0 % 07/01/2024 1:32 PM [facility] Basophil % 0.4 0.0 - 1.6 % 07/01/2024 1:32 PM [facility] Immature Granulocytes % 0.2 0.0 - 1.0 % 07/01/2024 1:32 PM [facility] Neutrophil Absolute 1.94 1.60 - 7.50 x10E9/L 07/01/2024 1:32 PM [facility] Lymphocyte Absolute 2.11 1.00 - 4.40 x10E9/L 07/01/2024 1:32 PM [facility] Monocyte Absolute 0.32 0.15 - 1.00 x10E9/L 07/01/2024 1:32 PM [facility] Eosinophil Absolute 0.21 0.00 - 0.60 x10E9/L 07/01/2024 1:32 PM [facility] Basophil Absolute 0.02 0.00 - 0.13 x10E9/L 07/01/2024 1:32 PM [facility] Blood BLOOD SPECIMEN / Unknown Lab Venipuncture / Unknown 07/01/2024 1:11 PM CDT 07/01/2024 1:26 PM CDT Stan Celeste MD LAB - HEMATOLOGY ORDERABLES Gila mcmanus Result [facility] [address] [place] [address], [facility] [phone] * (ABNORMAL) COMPREHENSIVE METABOLIC PANEL (07/01/2024 1:11 PM CDT) BUN 7 7 - 26 mg/dL 07/01/2024 2:02 PM [facility] Creatinine 0.74 0.56 - 0.96 mg/dL 07/01/2024 2:02 PM [facility] Sodium 138 136 - 145 mmol/L 07/01/2024 2:02 PM [facility] Potassium 3.6 3.5 - 4.5 mmol/L 07/01/2024 2:02 PM [facility] Chloride 110(H) 98 - 107 mmol/L 07/01/2024 2:02 PM [facility] CO2 22 22 - 29 mmol/L 07/01/2024 2:02 PM [facility] Glucose 129(H) 70 - 115 mg/dL 07/01/2024 2:02 PM [facility] Calcium 9.5 8.4 - 10.2 mg/dL 07/01/2024 2:02 PM [facility] Protein Total 7.2 6.0 - 8.3 g/dL 07/01/2024 2:02 PM [facility] Albumin 4.2 3.4 - 5.0 g/dL 07/01/2024 2:02 PM [facility] Bilirubin Total 0.5 0.2 - 1.2 mg/dL 07/01/2024 2:02 PM [facility] Alkaline Phosphatase 87 40 - 150 U/L 07/01/2024 2:02 PM [facility] ALT 22 5 - 55 U/L 07/01/2024 2:02 PM [facility] AST 26 5 - 34 U/L 07/01/2024 2:02 PM [facility] Anion Gap 6 6 - 16 07/01/2024 2:02 PM [facility] BUN/Creatinine Ratio 9 7 - 23 07/01/2024 2:02 PM [facility] Osmolality Calculated 286 275 - 295 mOsm/kg 07/01/2024 2:02 PM [facility] Albumin/Globulin Ratio 1.4 1.1 - 2.3 07/01/2024 2:02 PM [facility] eGFR by CKD-EPI >90 >=90 mL/min/1.7 3 m2 07/01/2024 2:02 PM [facility] Blood BLOOD SPECIMEN / Unknown Lab Venipuncture / Unknown 07/01/2024 1:11 PM CDT 07/01/2024 1:26 PM CDT Stan Celeste MD LAB - CHEMISTRY ORDERABLES Final Result [address] [address], [facility] [phone] * GGT (07/01/2024 1:11 PM CDT) Pathologist [facility] GGT 15 9 - 64 Units/L 07/01/2024 2:02 PM T [facility] Blood BLOOD SPECIMEN / Unknown Lab Venipuncture / Unknown 07/01/2024 1:11 PM CDT 07/01/2024 1:26 PM CDT Stan Celeste MD LAB - CHEMISTRY ORDERABLES Final Result [address] [address], [facility] [phone] * IGE BLOOD (07/01/2024 1:11 PM CDT) Pathologist [facility] IgE Total 27 <=214 kU/L 07/03/2024 6:33 PM CDT [facility] [employer] ([facility]) Comment: REFERENCE INTERVAL: Immunoglobulin E, Serum Access complete set of age- and/or gender-specific reference intervals for this test in the [facility] Laboratory Test Directory (Naked). Performed By: [facility] [address] [place] [address] Auto Suspension And Steering Mechanic: Jay Reyna MD, PhD CLIA Number: [id number] Blood BLOOD SPECIMEN / Unknown Lab Venipuncture / Unknown 07/01/2024 1:11 PM CDT 07/01/2024 1:26 PM CDT Stan Celeste MD LAB - CHEMISTRY ORDERABLES Final Result [facility]) [address] [place] [address] * GLUCOSE - POINT OF CARE (07/01/2024 10:56 AM CDT) [facility] Glucose WB/POC 78 70 - 106 mg/dL 07/01/2024 10:59 AM CDT [facility] Specimen Type Cap Fingerstick 2023 10:59 AM CDT [facility] Blood BLOOD SPECIMEN / Unknown 07/01/2024 10:56 AM CDT 07/01/2024 10:59 AM CDT Mildred Whitaker APRN-OFFSHORE DIVER LAB - POINT OF CARE O RDERABLES Final Result [facility] [address] [place] [id number] * CHLAMYDIA + GC AMPLIFIED PROBE (01/10/2023 5:02 PM CDT) [facility] Chlamydia Amplified Probe Negative Negative 01/10/2023 11:34 PM CDT [facility] GC Amplified Probe Negative Negative 01/10/2023 11:34 PM CDT [facility] Microbiology URINE / Unknown Collection / Unknown 01/10/2023 5:02 PM CDT 01/10/2023 5:20 PM CDT Narrative [facility] - 01/10/2023 11:34 PM CDT Results based on detection/no detection of ribosomal RNA by amplified method. us Ayla Carmen MD LAB - MICROBIOLOGY ORDERABLES F inal Result [facility] [address] [place] [address], [facility] [phone] * DEXA BONE DENSITY AXIAL SKELETON (09/28/2020 11:36 AM SKEIN YARN DYER HELPER) Anatomical Region Laterality Modality Radiographic Ani ging 09/28/2020 11:2 3 AM SKEIN YARN DYER HELPER Impressions 09/28/2020 1:30 PM SKEIN YARN DYER HELPER Normal bone density values for age. Z-score [...] at 1:30 PM Narrative 09/28/2020 1:30 PM SKEIN YARN DYER HELPER Dual x-ray absorptiometry was performed of the [...] on 09/28/2020 at 1:30 PM Mildred Whitaker [employer]-OFFSHORE DIVER DEXA ORDERABLES Final Result * CULTURE AFB+SMEAR (08/26/2013 12:01 PM SKEIN YARN DYER HELPER) Culture No Acid Fast Bacillus Isolated 10/07/2013 9:16 AM SKEIN YARN DYER HELPER [facility] AFB Smear No Acid Fast bacilli seen 10/07/2013 9:16 AM SKEIN YARN DYER HELPER [facility] Microbiology SPUTUM / Unknown 08/26/2013 12:01 PM SKEIN YARN DYER HELPER 08/26/2013 12:16 PM SKEIN YARN DYER HELPER Cedric Casas MD LAB - MICROBIOLOGY ORDERABL ES Final Result [facility] [address] [place], [place] [address], [facility] from Last 3 Months or Most Recently Relevant to Health Maintenance Additional Health Concerns Infection Onset Date Last Indicated Cystic Fibrosis 07/04/2014 07/04/2014 MDRO 01/29/2018 07/30/2018 MRSA 09/23/2019 10/07/2024 Insurance ANTHEM ANTHEM ANTHEM Advance Directives * Full Code (Latest Code Status on File) Date Activated Date Inactivated Comments 01/10/2023 11:47 AM 01/14/2023 12:03 PM * Full Code Date Activated Date Inactivated Comments 06/27/2021 12:19 AM 06/30/2021 3:03 PM * Full Code Date Activated Date Inactivated Comments 02/08/2021 8:14 PM 02/11/2021 12:00 PM Care Teams Farm Technician Relationship Specialty Start Date End Date Em Solano DO [address] [facility] [facility] [place] [address] PCP - General Internal Medicine 10/18/23
--- OUTSIDE RECORDS SUMMARY | 2025-02-14 09:37 | XMS_ITS | Encounter Summary ---
Author Organization [facility] Address [address] [place] [address] Care Team Providers Care General Maintenance Engineer Name Role Phone Yas An MD Primary Care Provider [phone] Em Solano DO Primary Care Provider [phone] Encounter Details Date Type Department Care Team (Late st Contact Info) Description 01/19/2023 Telephone [facility] - [address] [address] Ayla Carmen MD [address] [place] [id number] Social History Tobacco Use Types Packs/Day Years Used Date Smoking Tobacco: Never Passive Smoke Exposure: Yes Smokeless Tobacco: Never Alcohol Use Standard Drinks/Week Comments No 0 (1 standard drink = 0.6 oz pur e alcohol) Comments No Sex and Gender Information Value Date Recorded Sex Assigned at Not on file Legal Sex Female 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 Answer Date of Assessment Author No 01/10/2023 12:00 PM Jesus Moore RN * Is person blind or have serious difficulty seeing? Answer Date of Assessment Author No 01/10/2023 12:00 PM CDT Jesus Westbrook RN * Does person have serious difficulty walking/climbing stairs? Answer Date of Assessment Author No 01/10/2023 12:00 PM CDT Jesus Westbrook RN * Does person have difficulty dressing/bathing? Answer Date of Assessment Author No 01/10/2023 12:00 PM CDT Jesus Westbrook RN * Does person have difficulty doing errands alone? Answer Date of Assessment Author No 01/10/2023 12:00 PM CDT Jesus Westbrook RN documented as of this encounter Mental Status * Does person have difficulty concentrating/remembering/making decisions? Answer Entry Date Author No 01/10/2023 12:00 PM CDT Jesus Westbrook RN documented in this encounter Miscellaneous Notes * Telephone Encounter - Latosha Tripathi RN - 01/19/2023 9:24 AM CDT Spoke to Tamara's Mom - reviewed Dr. Carmen's update/plan. Mom expressed understanding. Mom asked if its possible to reschedule both CF and GI f/u apt on 02/13. States this is Tamara's last day of senior year and does not want to miss school. Graduation is 02/18. Mom asking if its possible to reschedule for 02/20 or after. Transferred mom to our malted milk mixer to discuss options. Will send update to [...] Info) Description 05/05/2025 10:30 AM CDT Appointment [facility] [address] [place] [address] 05/05/2025 11:00 AM CDT Office Visit [facility] - Pulmonology [address] [facility], [place] [address] Chong Calvillo MD [address] [facility] 2L DIV OF PULMONARY/[place] [address] documented as of this encounter Visit Diagnoses Not on filedocumented in this encounter Additional Health Concerns Infection Onset Date Last Indicated Resolved Time Cystic Fibrosis 07/04/2014 07/04/2014 MDRO 01/29/2018 07/30/2018 MRSA 09/23/2019 10/07/2024 COVID-19 Under Investigation 06/11/2024 06/11/2024 06/11/2024 11:25 AM CDT COVID-19 Confirmed 06/11/2024 06/11/2024 4:33 AM CDT documented as of this encounter Care Teams General Maintenance Engineer Relationship Specialty Start Date End Date Yas An MD [address] [facility] [address] [place] [address] PCP - General 05/01/18 10/17/23 Em Solano DO [address] [facility] 2L DIV [place] [address] PCP - General Internal Medicine 10/18/23 documented as of this encounter
--- OUTSIDE RECORDS SUMMARY | 2025-02-14 09:37 | XMS_ITS | Clinical Summary ---
Author Organization [facility] Address [address] [place] [address] Care Team Providers Care Compress Trucker Name Role Phone Greyson Fine Primary Care Provider [phone] Allergies Active Allergy Reactions Criticality Noted Date [...] muscle every 3 (three) months. Managed by RETAIL CONSULTANT Active amitriptyline (ELAVIL) 50 MG tabletIndication s:Migraine with aura and without status migrainosus, not intractable,Depr ession, unspecified depression type,Insomnia, unspecified type Take 1 tablet (50 mg total) by mouth nightly at bedtime. 30 tablet 1 09/06/2023 Active Active Problems Problem Noted Date Diagnosed Date Anxiety 09/05/2023 Depression, unspecified depression type 09/05/20 Cystic fibrosis ([facility]) 07/31/2023 History of kidney stones 07/31/2023 Migraine with aura and witho ut status migrainosus, not intractable 07/31/2023 Immunizations Immunization Administration Dates Next Due Dtap (Acel-Immune) 07/08/2010, [...] Comments Blood Pressure 90/59 09/06/2023 9:40 AM COMMODITY INDUSTRY ANALYST Pulse 84 09/06/2023 9:40 AM COMMODITY INDUSTRY ANALYST Temperature 36.4 C (97.6 F) 09/06/2023 9:40 AM COMMODITY INDUSTRY ANALYST Respiratory Rate 12 09/06/2023 9:40 AM COMMODITY INDUSTRY ANALYST Oxygen Saturation 100% 09/06/2023 9:40 AM COMMODITY INDUSTRY ANALYST Inhaled Oxygen Concentration - - Weight 63 kg (139 lb) 09/06/2023 9:40 AM COMMODITY INDUSTRY ANALYST Height 165.1 cm (5' 5 ) 09/06/2023 9:40 AM COMMODITY INDUSTRY ANALYST Body Mass Index 23.13 09/06/2023 9:40 AM COMMODITY INDUSTRY ANALYST Body Mass Index Percentile 69.00% 09/06/2023 9:4 0 AM COMMODITY INDUSTRY ANALYST Growth Chart: CDC (Girls, 2- 20 Years) Plan of Treatment Health Maintenance Due Date Last Done Comments Meningococcal B Vaccine (1 of 2 - Standard) 2021 Hepatitis C 2023 COVID-19 Vaccine ( - season) 2024 04/29/2021, 04/07/2021 Annual Physical 07/31/2024 07/31/2023 PHQ-2 (Physician [place]) 10/09/2024 09/06/2023 DTaP, Tdap and Td Vaccines (7 - Td or Tdap) 06/03/2025 06/03/2015, 07/08/2010, 08/29/2006, Additional history exists Hepatitis B Vaccines Completed 2005, 2005, 2005 Pneumococcal Vaccine: Pediatrics (0 to 5 Years) and At-Risk Patients (6 to 49 Years) Aged Out 05/30/2006, 2005, 2005, Additional history exists No longer eligible based on patient's age to complete this topic HPV Vaccines Completed 07/19/2019, 05/31/2018 Meningococcal Vaccine Completed 11/30/2021, 016 RSV Immunizations Under 20 Months Aged Out No longer eligible based on patient's age to complete this topic Insurance Care Teams Compress Trucker Relationship Specialty [place] [address] [place] [address] PCP - General Physician Periodontal Assistant Medical 12/19/23
--- OUTSIDE RECORDS SUMMARY | 2025-02-14 09:37 | XMS_ITS | Continuity of Care Document ---
Author Organization [facility] Address [address] [place] [address] [address] [place] [address] Phone Care Team Providers Care Service Control Operator Name Role Phone Jes Geiger Unavailable Unavailable Procedures Procedure Date Eye Exam, New Patient Refraction Advance Directives Directive Yes / No Effective Date File Name No Information Encounters Encounter Description Practice Location Reason(s) For Visit Diagnoses Date Provider Providers Copied on Encounter [facility], [address], [place], [place], [id number], [place] tel:[phone] [facility] So No Information [address]. [address] [facility] , [address], [place], [address], [place]. tel:[phone] Family History Family Member Type Diagnosis Age [...]
[2025-02-14 09:40] VITALS: BP 111/68; PULSE 85; RESP 16; TEMP 36.4; O2SAT 100
[2025-02-14 09:56] LABS: BEDSIDEPREGUCG Negative (Negative)
[2025-02-14 10:03] LABS: Add Urine Microscopic? YES; Appearance Urine Clear (Clear); Bacteria Urine None Seen /hpf; Bilirubin Urine Negative (Negative); Blood Urine Negative (Negative); Color Urine Yellow (Yellow); Glucose Urine UA Negative (Negative); Ketones Urine Negative (Negative); Leukocyte Esterase Ur 3+ LEU/UL (Negative); Nitrate Urine Negative (Negative); Non Pathogenic Casts 0-2; Protein Urine Negative (Negative); RBC Urine 0-2 /hpf (0-2); Specific Grav Ur 1.012 (1.001-1.035); Squamous Epithelial Cell Urine Occasional /hpf (Few); Urobilinogen Urine 0.2 mg/dL (<2.0); WBC Urine 21-50 /hpf (0-3); pH Urine 6.5 (5.0-9.0)
--- OUTSIDE RECORDS SUMMARY | 2025-02-14 10:18 | XMS_ITS | Clinical Summary ---
Author Organization [facility] Address [address] [place] [address] Care Team Providers Care Molder Pipe Covering Name Role Phone Greyson Fine Primary Care Provider [phone] Allergies Active Allergy Reactions Criticality Noted Date [...] muscle every 3 (three) months. Managed by GUEST ADVISOR Active amitriptyline (ELAVIL) 50 MG tabletIndication s:Migraine with aura and without status migrainosus, not intractable,Depr ession, unspecified depression type,Insomnia, unspecified type Take 1 tablet (50 mg total) by mouth nightly at bedtime. 30 tablet 1 09/06/2023 Active Active Problems Problem Noted Date Diagnosed Date Anxiety 09/05/2023 Depression, unspecified depression type 09/05/20 Cystic fibrosis ([facility]) 07/31/2023 History of kidney stones [...] Comments Blood Pressure 90/59 09/06/2023 9:40 AM PROJECT MANAGEMENT ANALYST Pulse 84 09/06/2023 9:40 AM PROJECT MANAGEMENT ANALYST Temperature 36.4 C (97.6 F) 09/06/2023 9:40 AM PROJECT MANAGEMENT ANALYST Respiratory Rate 12 09/06/2023 9:40 AM PROJECT MANAGEMENT ANALYST Oxygen Saturation 100% 09/06/2023 9:40 AM PROJECT MANAGEMENT ANALYST Inhaled Oxygen Concentration - - Weight 63 kg (139 lb) 09/06/2023 9:40 AM PROJECT MANAGEMENT ANALYST Height 165.1 cm (5' 5 ) 09/06/2023 9:40 AM PROJECT MANAGEMENT ANALYST Body Mass Index 23.13 09/06/2023 9:40 AM PROJECT MANAGEMENT ANALYST Body Mass Index Percentile 69.00% 09/06/2023 9:4 0 AM PROJECT MANAGEMENT ANALYST Growth Chart: CDC (Girls, 2- 20 Years) Plan of Treatment Health Maintenance Due Date Last Done Comments Meningococcal B Vaccine (1 of 2 - Standard) 2021 Hepatitis C 2023 COVID-19 Vaccine ( - season) 2024 04/29/2021, 04/07/2021 Annual Physical 07/31/2024 07/31/2023 PHQ-2 (Physician [place]) 10/09/2024 09/06/2023 DTaP, Tdap and Td Vaccines [...] to complete this topic Insurance Care Teams Molder Pipe Covering Relationship Specialty [place] [address] [address] [place] [address] PCP - General Physician Halver Machine Operator Medical 12/19/23
--- OUTSIDE RECORDS SUMMARY | 2025-02-14 10:18 | XMS_ITS | Continuity of Care Document ---
Author Organization [facility] Address [address] [place] [address] [address] [place] [address] Phone Care Team Providers Care Extermination Supervisor Name Role Phone Jes Geiger Unavailable Unavailable Procedures Procedure Date Eye Exam, New Patient Refraction Advance Directives Directive Yes / No Effective Date File Name No Information Encounters Encounter Description Practice Location Reason(s) For Visit Diagnoses Date Provider Providers Copied on Encounter [facility], [address], [place], [place], [id number], [place] tel:[phone] [facility] oS No Information [address] Andre. [address] [facility] , [address], [place], [address], [place]. tel:[phone] Family History Family Member Type Diagnosis Age [...]
--- OUTSIDE RECORDS SUMMARY | 2025-02-14 10:18 | XMS_ITS | Encounter Summary ---
Author Organization [facility] Address [address] [place] [address] Care Team Providers Care Orthotics Prosthetics Assistant Name Role Phone Yas An MD Primary Care Provider [phone] Em Solano DO Primary Care Provider [phone] Encounter Details Date Type Department Care Team (Late st Contact Info) Description 01/19/2023 Telephone [facility] - [address] [address] Ayla Carmen MD [address] [place] [address] Social History Tobacco Use Types Packs/Day Years Used Date Smoking Tobacco: Never Passive Smoke Exposure: Yes Smokeless Tobacco: Never Alcohol Use Standard Drinks/Week Comments No 0 (1 standard drink = 0.6 oz pur e alcohol) Comments No Sex and Gender Information Value Date Recorded Sex Assigned at Not on file Legal Sex Female 5:44 AM SPEED BELT SANDER Gender Identity Not on file Sexual Orientation [...] 02/20 or after. Transferred mom to our museum service scheduler to discuss options. Will send update to [...] Info) Description 05/05/2025 10:30 AM CDT Appointment [facility] [address] [place] [address] 05/05/2025 11:00 AM CDT Office Visit [facility] - Pulmonology [address] [facility], [place] [address] Chong Calvillo MD [address] [facility] 2L DIV OF PULMONARY/[place] [address] documented as of this encounter Visit Diagnoses Not on filedocumented in this encounter Additional Health Concerns Infection Onset Date Last Indicated Resolved Time Cystic Fibrosis 07/04/2014 07/04/2014 MDRO 01/29/2018 07/30/2018 MRSA 09/23/2019 10/07/2024 COVID-19 Under Investigation 06/11/2024 06/11/2024 06/11/2024 11:25 AM CDT COVID-19 Confirmed 06/11/2024 06/11/2024 4:33 AM CDT documented as of this encounter Care Teams Orthotics Prosthetics Assistant Relationship Specialty Start Date End Date Yas An MD [address] [facility] [address] [place] [address] PCP - General 05/01/18 10/17/23 Em Solano DO [address] [facility] 2L [place] [address] PCP - General Internal Medicine 10/18/23 documented as of this encounter
--- OUTSIDE RECORDS SUMMARY | 2025-02-14 10:18 | XMS_ITS | Clinical Summary ---
Author Organization [facility] [employer] Address [address] [place] [address] Care Team Providers Care Patternmaker Grader Name Role Phone Em Solano DO Primary Care Provider [phone] Source Comments [facility] [employer],non-owned Affiliates and Associated Physician Practices is amultiple site organization consisting of ambulatory clinics and hospital sitesin [place], [place], [place] and [place]. This disclosure is being madepursuant to the Care Everywhere program and may not contain all information available regarding this patient. Last updated 18.[facility] [employer] Allergies Active Allergy Reactions Criticality Noted Date [...] 252 tablet 10/14/19 25 Active pancrelipase (Creon) 86601-329256 units capsuleIndication s:Pancreatic insufficiency (HCC) TAKE 3 CAPSULES BY MOUTH THREE TIMES DAILY WITH MEALS AND 2 CAPSULES WITH SNACKS 450 capsule 2 11/07/19 25 Active Active Problems Patient Care Coordination No te Formatting of this note migh t be different from the original. Do you have any cultural preferences or concerns? 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 Assessment & Plan (09/06/2022 7:18 AM STRAIGHTEDGE MACHINE OPERATOR HELPER): Tamara has little sensation of improvement [...] 06/26/2021 Assessment & Plan (08/27/2021 2:21 PM STRAIGHTEDGE MACHINE OPERATOR HELPER): Tamara is a 16 year female [...] 02/24/2021 Assessment & Plan (09/02/2021 11:01 PM STRAIGHTEDGE MACHINE OPERATOR HELPER): A&P - status post cystoscopy and [...] - Urine trichomonas - Discussed with pediatric retail financial analyst, Dr. Marie, who recommends IUD removal Assessment [...] Obtain urine trichomonas - Discussed with pediatric retail financial analyst, Dr. 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 Assessment & Plan (09/06/2022 7:31 AM STRAIGHTEDGE MACHINE OPERATOR HELPER): CF lung disease- Tamara does not [...] well. Assessment & Plan (10/19/2021 6:58 AM STRAIGHTEDGE MACHINE OPERATOR HELPER): CF lung disease- Tamara is doing [...] has had the influenza vaccine for the [id number] season. She has had two doses of [...] 0 Assessment & Plan (09/28/2020 10:38 AM STRAIGHTEDGE MACHINE OPERATOR HELPER): CF lung disease- Tamara is doing [...] described the measures we have taken at [facility] in response to this crisis and [...] other CF physicians, nurses, respiratory therapists, dietitian, director of social services, psychologist, and pharmacist. Assessment & Plan (08/04/2020 [...] described the measures we have taken at [facility] in response to this crisis and the efforts to minimize exposure if the patient needs to be seen in person or in the ED. Assessment & Plan (09/23/2019 9:30 AM STRAIGHTEDGE MACHINE OPERATOR HELPER): CF lung disease- Tamara is doing [...] other CF physicians, nurses, respiratory therapists, dietitian, director of social services, psychologist, and pharmacist. Assessment & Plan (06/03/2019 [...] season. Assessment & Plan (11/27/2018 8:18 AM STRAIGHTEDGE MACHINE OPERATOR HELPER): CF lung disease- Tamara is doing [...] findings on new therapy from the [place] [facility] conference last week. Assessment & [...] time. Assessment & Plan (10/30/2017 2:05 PM STRAIGHTEDGE MACHINE OPERATOR HELPER): CF lung disease- Tamara is doing [...] time. Assessment & Plan (11/04/2016 12:08 PM STRAIGHTEDGE MACHINE OPERATOR HELPER): CF lung disease- Tamara is doing [...] illness. Assessment & Plan (09/12/2016 10:08 AM STRAIGHTEDGE MACHINE OPERATOR HELPER): CF lung disease- Tamara is doing [...] on signs, symptoms, and lung function results, Tamaar Denise is experiencing a pulmonary exacerbation of [...] time. Assessment & Plan (11/02/2015 10:13 AM STRAIGHTEDGE MACHINE OPERATOR HELPER): CF lung disease- Tamara is doing [...] time. Assessment & Plan (08/31/2015 10:50 AM STRAIGHTEDGE MACHINE OPERATOR HELPER): CF lung disease- Tamara is doing [...] 11/30/2015 Assessment & Plan (11/02/2015 10:15 AM STRAIGHTEDGE MACHINE OPERATOR HELPER): I think that this is of [...] us. Assessment & Plan (11/02/2015 10:17 AM STRAIGHTEDGE MACHINE OPERATOR HELPER): Vocal Cord Dysfunction - The incomplete/poor [...] Only [facility] - Pulmonology [address] [place] [id number] Luciana Blunt RN Cystic fibrosis ([facility]) 12/06/2024 Telephone [facility] Cystic Fibrosis [address] [place] [address] Obdulia Blackwood CPhT Medication Prior Auth Request [...] on file Legal Sex Female 5:44 AM STRAIGHTEDGE MACHINE OPERATOR HELPER Gender Identity Not on file Sexual Orientation Not on file Last Filed Vital Signs Vital Sign Reading Time Taken Comments Blood Pressure 96/64 10/07/2024 8:36 AM STRAIGHTEDGE MACHINE OPERATOR HELPER Pulse 72 10/07/2024 8:36 AM STRAIGHTEDGE MACHINE OPERATOR HELPER Temperature 36.6 C (97.8 F) 08/05/2024 10:39 AM CDT Respiratory Rate 17 10/07/2024 8:36 AM STRAIGHTEDGE MACHINE OPERATOR HELPER Oxygen Saturation 94% 10/07/2024 8:36 AM STRAIGHTEDGE MACHINE OPERATOR HELPER Inhaled Oxygen Concentration 100% 02/21/2023 2 :15 PM CDT Weight 64 kg (141 lb 3.2 oz) 10/07/2024 8:36 AM STRAIGHTEDGE MACHINE OPERATOR HELPER Height 162.6 cm (5' 4 ) 10/07/2024 8:36 AM STRAIGHTEDGE MACHINE OPERATOR HELPER Body Mass Index 24.24 10/07/2024 8:36 AM STRAIGHTEDGE MACHINE OPERATOR HELPER Plan of Treatment Upcoming Encounters Date Type Department Care Team (Late st Contact Info) Description 05/05/2025 10:30 AM CDT Appointment [facility] PFT [address] [place] [address] 05/05/2025 11:00 AM CDT Office Visit [facility] - Pulmonology [address] [place] [address] Chong Calvillo MD [address] [facility] [facility] [address] Health Maintenance Due Date Last Done Comments [...] history exists Medical Devices Explanted Type Area Fishing Rod Trimmer Device Identifier Shelf Expiration Date Model / Serial / Lot Set Stent 24cm 5fr Universa .038in 3cm 2 Explanted:Qty: 1 on 06/29/2021 at [facility] Left: Ureter [employer] 02/23/2023 [id number] / / [id number] Set Stent 26cm 5fr Universa 2 Pgtl Crv Implanted:Qty: 1 on 06/29/2021 by Kashmir Wheat MD at [facility] Explanted:Qty: 1 on 08/04/2021 by Kashmir Wheat MD at [facility] Left: Ureter [employer] 01/31/2024 [id number] / / [id number] Firm Ureteral Stent And Positioner Implanted:Qty: 1 on 08/04/2021 by Kashmir Wheat MD at [facility] Explanted:Qty: 1 on 08/24/2021 by Kashmir Wheat MD at [facility] Left: [employer] 04/06/2024 [id number] / / [id number] Description:NO CHARGE ITEM, TRIAL stent removed intact and discarded Procedures Procedure Name Priority Date/Time Associated Diagnosis Comments CULTURE CYSTIC FIBROSIS PULMONARY Routine 10/07/2024 9:51 AM STRAIGHTEDGE MACHINE OPERATOR HELPER Cystic fibrosis CBC W AUTO DIFFERENTIAL Routine 07/01/2024 1:11 PM CDT Cystic fibrosis-Y271cqn/F 508del COMPREHENSIVE METABOLIC PANEL Routine 07/01/2024 1:11 PM CDT Cystic fibrosis-E163nne/F 508del IGE BLOOD Routine 07/01/2024 1:11 PM CDT Cystic fibrosis-K791kwg/F 508del PT-INR [facility]H Routine 07/01/2024 1:11 PM CDT Cystic fibrosis-S125rqu/F 508del VITAMIN E Routine 07/01/2024 1:11 PM CDT Cystic fibrosis-M008nov/F 508del VITAMIN D 25-HYDROXY Routine 07/01/2024 1:11 PM CDT Cystic fibrosis-Q438ohn/F 508del VITAMIN A Routine 07/01/2024 1:11 PM CDT Cystic fibrosis-J725awx/F 508del GGT Routine 07/01/2024 1:11 PM CDT Cystic fibrosis-F361ixy/F 508del GLUCOSE - POINT OF CARE Routine 07/01/2024 10:56 AM CDT CHLAMYDIA + GC AMPLIFIED PROBE Routine 01/10/2023 5:02 PM CDT DEXA BONE DENSITY AXIAL SKELETON Routine 09/28/2020 11:36 AM STRAIGHTEDGE MACHINE OPERATOR HELPER Cystic fibrosis CULTURE AFB+SMEAR Routine 08/26/2013 12: 01 PM STRAIGHTEDGE MACHINE OPERATOR HELPER Cystic fibrosis from Last 3 Months or Most Recently Relevant to Health Maintenance Results * (ABNORMAL) CULTURE CYSTIC FIBROSIS PULMONARY (10/07/2024 9:51 AM STRAIGHTEDGE MACHINE OPERATOR HELPER) Culture Moderate normal oropharyngeal karin CAIN 10/12/2024 2:50 PM STRAIGHTEDGE MACHINE OPERATOR HELPER [facility] Culture Rare Staphylococcus aureus methicillin-resista nt (MRSA)(A) CAIN 10/12/2024 2:50 PM STRAIGHTEDGE MACHINE OPERATOR HELPER [facility] Comment:Staphylococcus aureu s methicillin-resistant (MRSA) detected by penicillin binding protein immunoassay. Contact precautions required. Conventional antibiotic susceptibility testing to follow. Culture Rare Pseudomonas aeruginosa (mucoid)(A) 10/12/2024 2:50 PM STRAIGHTEDGE MACHINE OPERATOR HELPER [facility] Gram Stain No organisms seen 025 2:50 PM STRAIGHTEDGE MACHINE OPERATOR HELPER [facility] Gram Stain Rare Polymorphonuclear cells 10/12/2024 2:50 PM STRAIGHTEDGE MACHINE OPERATOR HELPER [facility] Microbiology SPUTUM SPECIMEN OBTAINED BY SPUTUM INDUCTION / Unknown Collection / Unknown 10/07/2024 9:51 AM STRAIGHTEDGE MACHINE OPERATOR HELPER 10/07/2024 3:51 PM STRAIGHTEDGE MACHINE OPERATOR HELPER Narrative [facility] - 10/12/2024 2:50 PM STRAIGHTEDGE MACHINE OPERATOR HELPER Methicillin-resistant Staphylococci (MRSA) are resistant to [...] LAB - MICROBIOLOGY ETHEL STATON Final Result [facility] [address] [place] [address], [facility] [phone] * PT-INR [facility] (07/01/2024 1:11 PM CDT) PT 13.6 12.1 - 14.8 Seconds 07/01/2024 1:56 PM CDT [facility] INR 1.1 See Comment 07/01/2024 1:56 PM CDT [facility] Comment:The suggested therap eutic range for standard coumadin (warfarin) therapy is an INR of 2.0-3.0. For high-risk patients (Mechanical Mitral Valve Prosthesis, etc.), the suggested prophylactic therapeutic range is an INR of 2.5-3.5. Blood BLOOD SPECIMEN / Unknown Lab Venipuncture / Unknown 07/01/2024 1:11 PM CDT 07/01/2024 1:26 PM CDT Stan Celeste MD LAB - COAGULATION ORDERABLES Fin al Result [facility] [address] [place] [address], [facility] [phone] * (ABNORMAL) VITAMIN A (07/01/2024 1:11 PM CDT) Vitamin A 0.23(L) 0.30 - 1.20 mg/L 07/04/2024 9:14 AM CDT [facility] ([facility]) Retinyl Palmitate <0.02 0.00 - 0.10 mg/L 07/04/2024 9:14 AM CDT [facility] ([facility]) Interpretation Vitamin A See Note 07/04/2024 9:14 AM CDT [facility] ([facility]) Comment: Retinol greater than 0.3 mg/L is typically associated with adequate liver stores in adults, and is within normal limits for children. Retinol less than 0.10 mg/L may indicate depleted liver stores and severe deficiency. This test was developed and its performance characteristics determined by [facility]. It has not been cleared or approved by the US Food and Drug Administration. This test was performed in a CLIA certified laboratory and is intended for clinical purposes. Performed By: [place] [address] Muck Hauler: Jay Reyna MD, PhD CLIA Number: [id number] Blood BLOOD SPECIMEN / Unknown Lab Venipuncture / Unknown 07/01/2024 1:11 PM CDT 07/01/2024 1:26 PM CDT Stan Celeste MD LAB - CHEMISTRY ORDERABLES Final Result [facility]) [address] [place] [address] * (ABNORMAL) VITAMIN E (07/01/2024 1:11 PM CDT) Vitamin E Alpha Tocopherol 5.2(L) 5.5 - 18.0 mg/L 07/04/2024 9:14 AM CDT [facility] ([facility]) Comment: This test was developed and its performance characteristics determined by [facility]. It has not been cleared or approved by the US Food and Drug Administration. This test was performed in a CLIA certified laboratory and is intended for clinical purposes. Vitamin E Gamma Tocopherol 0.6 0.0 - 6.0 mg/L 07/04/2024 9:14 AM CDT [facility] ([facility]) Comment: Performed By: [facility] [employer] [address] [place] [address] Muck Hauler: Jay Reyna MD, PhD CLIA Number: [id number] Blood BLOOD SPECIMEN / Unknown Lab Venipuncture / Unknown 07/01/2024 1:11 PM CDT 07/01/2024 1:26 PM CDT Stan Celeste MD LAB - CHEMISTRY ORDERABLES Final Result [facility] ([facility]) [address] [place] [address], [facility] * (ABNORMAL) VITAMIN D 25-HYDROXY (07/01/2024 1:11 PM CDT) Vitamin D, 25 Hydroxy 27.6(L) 30.0 - 80.0 ng/mL 07/01/2024 2:20 PM CDT [facility] Comment: The recommendations for 25-Hydroxy Vitamin D [...] MD LAB - CHEMISTRY ORDERABLES Final Result [facility] [address] [place] [address], [facility] [phone] * CBC W AUTO DIFFERENTIAL (07/01/2024 1:11 PM CDT) WBC 4.6 4.0 - 10.7 x10E9/L 07/01/2024 1:32 PM CDT [facility] RBC Count 4.22 3.90 - 5.20 x10E12/L 07/01/2024 1:32 PM CDT [facility] Hemoglobin 12.9 11.9 - 15.8 g/dL 07/01/2024 1:32 PM CDT [facility] Hematocrit 38.4 34.8 - 46.1 % 07/01/2024 1:32 PM [facility] MCV 91.0 80.0 - 98.0 fL 07/01/2024 1:32 PM [facility] MCH 30.6 26.7 - 33.6 pg 07/01/2024 1:32 PM [facility] MCHC 33.6 31.7 - 36.3 g/dL 07/01/2024 1:32 PM [facility] RDW-CV 12.0 11.3 - 14.8 % 07/01/2024 1:32 PM [facility] Platelet Count 201 150 - 420 x10E9/L 07/01/2024 1:32 PM [facility] MPV 10.6 7.8 - 11.4 fL 07/01/2024 1:32 PM [facility] Neutrophil % 42.1 41.0 - 74.0 % 07/01/2024 1:32 PM [facility] Lymphocyte % 45.8 17.0 - 47.0 % 07/01/2024 1:32 PM [facility] Monocyte % 6.9 3.0 - 11.0 % 07/01/2024 1:32 PM [facility] Eosinophil % 4.6 0.0 - 7.0 % 07/01/2024 1:32 PM [facility] Basophil % 0.4 0.0 - 1.6 % 07/01/2024 1:32 PM [facility] Immature Granulocytes % 0.2 0.0 - 1.0 % 07/01/2024 1:32 PM [facility] Neutrophil Absolute 1.94 1.60 - 7.50 x10E9/L 07/01/2024 1:32 PM [facility] Lymphocyte Absolute 2.11 1.00 - 4.40 x10E9/L 07/01/2024 1:32 PM [facility] Monocyte Absolute 0.32 0.15 - 1.00 x10E9/L 07/01/2024 1:32 PM [facility] Eosinophil Absolute 0.21 0.00 - 0.60 x10E9/L 07/01/2024 1:32 PM [facility] Basophil Absolute 0.02 0.00 - 0.13 x10E9/L 07/01/2024 1:32 PM [facility] Blood BLOOD SPECIMEN / Unknown Lab Venipuncture / Unknown 07/01/2024 1:11 PM CDT 07/01/2024 1:26 PM CDT Stan Celeste MD LAB - HEMATOLOGY ORDERABLES Gila mcmanus Result [facility] [address] [place] [address], [facility] [phone] * (ABNORMAL) COMPREHENSIVE METABOLIC PANEL (07/01/2024 1:11 PM CDT) BUN 7 7 - 26 mg/dL 07/01/2024 2:02 PM [facility] Creatinine 0.74 0.56 - 0.96 mg/dL 07/01/2024 2:02 PM [facility] Sodium 138 136 - 145 mmol/L 07/01/2024 2:02 PM [facility] Potassium 3.6 3.5 - 4.5 mmol/L 07/01/2024 2:02 PM [facility] Chloride 110(H) 98 - 107 mmol/L 07/01/2024 2:02 PM [facility] CO2 22 22 - 29 mmol/L 07/01/2024 2:02 PM [facility] Glucose 129(H) 70 - 115 mg/dL 07/01/2024 2:02 PM [facility] Calcium 9.5 8.4 - 10.2 mg/dL 07/01/2024 2:02 PM [facility] Protein Total 7.2 6.0 - 8.3 g/dL 07/01/2024 2:02 PM [facility] Albumin 4.2 3.4 - 5.0 g/dL 07/01/2024 2:02 PM [facility] Bilirubin Total 0.5 0.2 - 1.2 mg/dL 07/01/2024 2:02 PM [facility] Alkaline Phosphatase 87 40 - 150 U/L 07/01/2024 2:02 PM [facility] ALT 22 5 - 55 U/L 07/01/2024 2:02 PM [facility] AST 26 5 - 34 U/L 07/01/2024 2:02 PM [facility] Anion Gap 6 6 - 16 07/01/2024 2:02 PM [facility] BUN/Creatinine Ratio 9 7 - 23 07/01/2024 2:02 PM [facility] Osmolality Calculated 286 275 - 295 mOsm/kg 07/01/2024 2:02 PM [facility] Albumin/Globulin Ratio 1.4 1.1 - 2.3 07/01/2024 2:02 PM [facility] eGFR by CKD-EPI >90 >=90 mL/min/1.7 3 m2 07/01/2024 2:02 PM [facility] Blood BLOOD SPECIMEN / Unknown Lab Venipuncture / Unknown 07/01/2024 1:11 PM CDT 07/01/2024 1:26 PM CDT Stan Celeste MD LAB - CHEMISTRY ORDERABLES Final Result [address] [address], [facility] [phone] * GGT (07/01/2024 1:11 PM CDT) Pathologist [facility] GGT 15 9 - 64 Units/L 07/01/2024 2:02 PM T [facility] Blood BLOOD SPECIMEN / Unknown Lab Venipuncture / Unknown 07/01/2024 1:11 PM CDT 07/01/2024 1:26 PM CDT Stan Celeste MD LAB - CHEMISTRY ORDERABLES Final Result [address] [address], [facility] [phone] * IGE BLOOD (07/01/2024 1:11 PM CDT) Pathologist [facility] IgE Total 27 <=214 kU/L 07/03/2024 6:33 PM CDT [facility] [employer] ([facility]) Comment: REFERENCE INTERVAL: Immunoglobulin E, Serum Access complete set of age- and/or gender-specific reference intervals for this test in the [facility] Laboratory Test Directory ([employer]). Performed By: [facility] [employer] [address] [place] [address] Muck Hauler: Jay Reyna MD, PhD CLIA Number: [id number] Blood BLOOD SPECIMEN / Unknown Lab Venipuncture / Unknown 07/01/2024 1:11 PM CDT 07/01/2024 1:26 PM CDT Stan Celeste MD LAB - CHEMISTRY ORDERABLES Final Result [facility]) [address] [place] [address] * GLUCOSE - POINT OF CARE (07/01/2024 10:56 AM CDT) [facility] Glucose WB/POC 78 70 - 106 mg/dL 07/01/2024 10:59 AM CDT [facility] Specimen Type Cap Fingerstick 2023 10:59 AM CDT [facility] Blood BLOOD SPECIMEN / Unknown 07/01/2024 10:56 AM CDT 07/01/2024 10:59 AM CDT Mildred Whitaker APRN-JIRA ADMINISTRATOR LAB - POINT OF CARE O RDERABLES Final Result [facility] [address] [place] [id number] * CHLAMYDIA + GC AMPLIFIED PROBE (01/10/2023 5:02 PM CDT) [facility] Chlamydia Amplified Probe Negative Negative 01/10/2023 11:34 PM CDT [facility] GC Amplified Probe Negative Negative 01/10/2023 11:34 PM CDT [facility] Microbiology URINE / Unknown Collection / Unknown 01/10/2023 5:02 PM CDT 01/10/2023 5:20 PM CDT Narrative [facility] - 01/10/2023 11:34 PM CDT Results based on detection/no detection of ribosomal RNA by amplified method. us Ayla Carmen MD LAB - MICROBIOLOGY ORDERABLES F inal Result [facility] [address] [place] [address], [facility] [phone] * DEXA BONE DENSITY AXIAL SKELETON (09/28/2020 11:36 AM STRAIGHTEDGE MACHINE OPERATOR HELPER) Anatomical Region Laterality Modality Radiographic Ani ging 09/28/2020 11:2 3 AM STRAIGHTEDGE MACHINE OPERATOR HELPER Impressions 09/28/2020 1:30 PM STRAIGHTEDGE MACHINE OPERATOR HELPER Normal bone density values for age. [...] at 1:30 PM Narrative 09/28/2020 1:30 PM STRAIGHTEDGE MACHINE OPERATOR HELPER Dual x-ray absorptiometry was performed of [...] on 09/28/2020 at 1:30 PM Mildred Whitaker DIRECTOR FAMILY-JIRA ADMINISTRATOR DEXA ORDERABLES Final Result * CULTURE AFB+SMEAR (08/26/2013 12:01 PM STRAIGHTEDGE MACHINE OPERATOR HELPER) Culture No Acid Fast Bacillus Isolated 10/07/2013 9:16 AM STRAIGHTEDGE MACHINE OPERATOR HELPER [facility] AFB Smear No Acid Fast bacilli seen 10/07/2013 9:16 AM STRAIGHTEDGE MACHINE OPERATOR HELPER [facility] Microbiology SPUTUM / Unknown 08/26/2013 12:01 PM STRAIGHTEDGE MACHINE OPERATOR HELPER 08/26/2013 12:16 PM STRAIGHTEDGE MACHINE OPERATOR HELPER Cedric Casas MD LAB - MICROBIOLOGY ORDERABL ES Final Result [facility] [address] [place], [place] [address], [facility] from Last 3 Months or Most Recently [...] 8:14 PM 02/11/2021 12:00 PM Care Teams Patternmaker Grader Relationship Specialty Start Date End Date Em Solano DO [address] [facility] [place] [address] PCP - General Internal Medicine 10/18/23
[2025-02-14 10:19] LABS: Basophils Percent Auto 0.5 % (0.2-1.2); Eosinophils Absolute Auto 0.3 K/mm3 (0-0.3); Eosinophils Percent Auto 5.2 % (0-4.4); Hematocrit 36.1 % (37.0-47.0); Hemoglobin 11.6 g/dL (12.0-15.0); Immature Granulocyte Absolute 0.01 K/mm3 (0.00-0.031); Immature Granulocyte Percent A 0.2 % (0-0.5); Lymphocytes Absolute Auto 1.78 K/mm3 (0.9-3.2); Lymphocytes Percent Auto 31.8 % (18.3-44.2); Mean Corpuscular HGB Conc 32.1 g/dl (32-36); Mean Corpuscular Hemoglobin 30.4 pg (26-34); Mean Corpuscular Volume 94.5 fl (80-100); Mean Platelet Volume 10.4 fl (7.4-10.4); Monocytes Absolute Auto 0.5 K/mm3 (0.1-0.6); Monocytes Percent Auto 9.1 % (2.6-8.5); Neutrophils Percent Auto 53.2 % (45.5-73.1); Platelet Count Result 240 k/mm3 (150-375); Red Blood Count 3.82 M/mm3 (4.2-5.4); Red Cell Distribution Width 12.8 % (11.5-14.5); White Blood Count 5.6 K/mm3 (4.5-10.0)
[2025-02-14 10:27] LABS: Anion Gap 8 mmol/L (4-12); Blood Urea Nitrogen 6 mg/dL (8-21); Calcium 8.9 mg/dL (8.9-10.7); Carbon Dioxide 24 mmol/L (22-30); Chloride 107 mmol/L (98-107); Estimated CRCL calculation 114 ml/min; Estimated Glomerular Filt Rate > 60; Glucose 109 mg/dL (65-110); Potassium 3.9 mmol/L (3.4-5.0); Sodium 139 mmol/L (134-143)
--- NOTE | 2025-02-14 10:35 | ED.ABDPAIN ---
HPI - Abdominal Pain General Chief Complaint: Urogenital-Female Stated Complaint: kidney pain, hx of stones Time Seen by Provider: 02/14/25 10:04 Source: patient Mode of arrival: ambulatory Limitations: no limitations History of Present Illness HPI narrative: This is a 19-year-old female that presents to the emergency department for right flank pain. Reports associated nausea and vomiting. Ongoing since earlier this morning. Reports history of kidney stones. Reports dysuria. Denies fevers, hematuria. Related Data Home Medications ?Medication ?Instructions ?Recorded ?Confirmed ?Last Taken ?Type dornase sergio 1 mg/mL solution for 1 mg inhalation USEASDIRECTD 06/26/21 04/18/24 Unknown History inhalation (Pulmozyme) elexacaftor 100 mg-tezacaf 1 ea PO BID 06/26/21 04/18/24 Unknown History 50mg-ivacaf 75mg(d)/ivacaf 150mg(n) tablets (Trikafta) escitalopram oxalate 10 mg tablet 10 mg PO DAILY 06/26/21 04/18/24 Unknown History dipxnk-wuqbzbuh-emooflr 1 cap PO QID 06/26/21 04/18/24 Unknown History 36,000-114,000-180,000 unit capsule,delay rel (Creon) pediatric multivitamin no.61-vit 1 cap PO DAILY 06/26/21 04/18/24 Unknown History D3 3,000 unit-vit K 800 mcg capsule (MVW Complete Formulation D) amoxicillin 500 mg-potassium tablet 12/30/24 Unknown History clavulanate 125 mg tablet azithromycin 500 mg tablet mg 12/30/24 Unknown History venlafaxine 150 mg mg PO 12/30/24 Unknown History capsule,extended release 24 hr Allergies Allergy/AdvReac Type Severity Reaction Status Date / Time cefixime Allergy Unknown Unknown Verified 02/14/25 09:32 Review of Systems Review of Systems: CONSTITUTIONAL: Denies fever GASTROINTESTINAL: Reports abdominal pain, nausea, vomiting GENITOURINARY: Reports dysuria. Denies hematuria. All systems reviewed & are unremarkable except as noted in HPI and below PMFSH Past Medical History Medical History Neck pain Anxiety and depression Cystic fibrosis Kidney stone Surgical History Surgical History History of tonsillectomy and adenoidectomy History of placement of ear tubes History of lithotripsy Family History Family History Father Family history non-contributory Social History Social History Smoking status: Never smoker Substance use type: does not use Gender identity (if verbalized by the patient): Female Sexual Orientation (if Verbalized by the Patient): Straight or Heterosexual Spiritual care concerns: No Exam Narrative: GENERAL: Well-appearing, well-nourished, and in no acute distress. HEAD: Normocephalic, atraumatic. EYES: EOMI. CHEST: Clear to auscultation. No respiratory distress. No wheezes rales or rhonchi HEART: Regular rate and rhythm. No murmur heard. Normal peripheral pulses. ABDOMEN: Soft, nontender, nondistended, normal active bowel sounds. Right CVA tenderness EXTREMITIES: Normal range of motion. No edema. SKIN: Warm, dry, no rash. NEURO: No focal deficits. Alert and oriented x3. PSYCH: Normal mood and affect Course Course Emergency Course: Patient updated on her workup and agrees with plan of care Vital Signs Vital signs: Vital Signs Temperature 97.6 F 02/14/25 09:40 Pulse Rate 85 02/14/25 09:40 Respiratory Rate 16 02/14/25 09:40 Blood Pressure 111/68 02/14/25 09:40 Pulse Oximetry 100 02/14/25 09:40 Oxygen Delivery Room Air 02/14/25 09:40 Temperature 97.6 F 02/14/25 09:40 Pulse Rate 85 02/14/25 09:40 Respiratory Rate 16 02/14/25 09:40 Blood Pressure 111/68 02/14/25 09:40 Pulse Oximetry 100 02/14/25 09:40 Oxygen Delivery Room Air 02/14/25 09:40 MDM - Abdominal Pain MDM Narrative Medical decision making narrative: Patient presents to the emergency department for right-sided flank pain. She is afebrile and nontoxic appearing. Her vitals are stable. Cbc without leukocytosis. Metabolic panel without concerning findings. Urine with evidence of infection. This was sent for culture. test is negative. CT abdomen pelvis shows nonobstructing small renal stones. Patient updated on her workup and agrees with plan of care. Will be started on oral antibiotics based on her previous urine culture. She is to follow up with primary provider. She was given warnings to return to the ER Differential Diagnosis Differential diagnosis: Likely calculus of kidney and other (UTI) Lab Data Attestation: I reviewed the patient's lab results. 02/14/25 10:09 02/14/25 10:09 Labs: Lab Results 02/14/25 02/14/25 02/14/25 Range/Units 09:52 09:54 10:09 WBC 5.6 (4.5-10.0) K/mm3 RBC 3.82 L (4.2-5.4) M/mm3 Hgb 11.6 L (12.0-15.0) g/dL Hct 36.1 L (37.0-47.0) % MCV 94.5 (80-100) fl MCH 30.4 (26-34) pg MCHC 32.1 (32-36) g/dl RDW 12.8 (11.5-14.5) % Plt Count 240 (150-375) k/mm3 MPV 10.4 (7.4-10.4) fl Immature Gran % (Auto) 0.2 (0-0.5) % Neut % (Auto) 53.2 (45.5-73.1) % Lymph % (Auto) 31.8 (18.3-44.2) % [place] % (Auto) 9.1 H (2.6-8.5) % Eos % (Auto) 5.2 H (0-4.4) % Baso % (Auto) 0.5 (0.2-1.2) % Lymph # (Auto) 1.78 (0.9-3.2) K/mm3 [place] # (Auto) 0.5 (0.1-0.6) K/mm3 Eos # (Auto) 0.3 (0-0.3) K/mm3 Baso # (Auto) 0.0 (0.0-0.1) K/mm3 Abs Immat Gran (auto) 0.01 (0.00-0.031) K/mm3 Absolute Neuts (auto) 3.0 (1.3-6.7) K/mm3 Absolute Nucleated RBC 0.000 (0.0-0.012) K/mm3 Nucleated RBC % 0.0 (0.0-0.2) % Sodium 139 (134-143) mmol/L Potassium 3.9 (3.4-5.0) mmol/L Chloride 107 (98-107) mmol/L Carbon Dioxide 24 (22-30) mmol/L Anion Gap 8 (4-12) mmol/L BUN 6 L (8-21) mg/dL Creatinine 0.58 L (0.7-1.0) mg/dL Estim Creat Clear Calc 114 ml/min Estimated GFR > 60 (59 - ) Glucose 109 (65-110) mg/dL Calcium 8.9 (8.9-10.7) mg/dL Urine Color Yellow (Yellow) Urine Appearance Clear (Clear) Urine pH 6.5 (5.0-9.0) Ur Specific [place] 1.012 (1.001-1.035) Urine Protein Negative (Negative) mg/dL Urine Glucose (UA) Negative (Negative) mg/dL Urine Ketones Negative (Negative) mg/dL Ur Blood (Man) Negative (Negative) Urine Nitrate Negative (Negative) Urine Bilirubin Negative (Negative) Urine Urobilinogen 0.2 (<2.0) mg/dL Leukocyte Esterase Rfl 3+ H (Negative) ENEDINA/UL Urine RBC 0-2 (0-2) /hpf Urine WBC 21-50 H (0-3) /hpf Ur Squamous Epith Cells Occasional (Few) /hpf Urine Bacteria None seen /hpf Urine Casts 0-2 POC Urine HCG, Qual Negative (Negative) Imaging Data Radiologist's impression: ITS Impressions Abdomen/Pelvis CT 02/14/25 11:16 Impression: Nonobstructing small renal stones, as detailed above. No ureteral stone or hydronephrosis. Severe fatty atrophy of the pancreas again noted. Critical Care Time Critical Care Time Critical Care Time: No Discharge Plan Discharge Clinical Impression: Acute UTI Patient Disposition: Home Condition: Stable Instructions: Antibiotic Form, Acute Urinary Retention in Women (ED) Additional Instructions: Return to the ER if you experience fever, abdominal pain with nausea and vomiting, you are unable to keep down liquids or solids, or any other symptoms that are concerning to you Remain well hydrated. Take oral antibiotics as prescribed Follow up with primary care doctor Patient Language: Vietnamese Prescriptions: New sulfamethoxazole-trimethoprim 800-160 mg tablet 1 tablet PO Q12H 10 Days Qty: 20 0RF No Action venlafaxine 150 mg capsule,extended release 24hr PO amoxicillin-pot clavulanate 500-125 mg tablet azithromycin 500 mg tablet hydrocodone-acetaminophen 5-325 mg tablet 1 tablet PO Q8H PRN (Reason: pain) Qty: 6 0RF Pulmozyme 1 mg/mL solution 1 mg INHALATION USEASDIRECTD escitalopram oxalate 10 mg tablet 10 mg PO DAILY Creon 36,000-114,000- 180,000 unit Capsule,Delayed Release(Dr/Ec) 1 cap PO QID Rx Instructions: 5 with meals and 4 with snacks MVW Complete Formulation D3000 3,000-800 unit-mcg capsule 1 cap PO DAILY Trikafta 100-50-75 mg(d) /150 mg (n) tablets, sequential 1 ea PO BID hydrocodone-acetaminophen 5-325 mg tablet 1 tablet PO Q12H PRN (Reason: pain, severe) Qty: 10 0RF albuterol sulfate 90 mcg/actuation HFA aerosol inhaler 1 inh inhalation QID PRN (Reason: shortness of breath or wheezing) Qty: 8.5 1RF ondansetron 4 mg tablet,disintegrating 4 mg PO Q8H PRN (Reason: nausea and vomiting) Qty: 15 0RF doxycycline monohydrate 100 mg capsule 100 mg PO BID Qty: 20 0RF Follow-up/Referrals: Yas An MD [Primary Care Provider] -
[2025-02-14] MEDS: SODIUM CHLORIDE 0.9% IV 1,000 ML 999 ML IV CONT (11:19)
[2025-02-14] MEDS: ONDANSETRON INJ 4 MG/2 ML VIAL IV PUSH (11:20)
[2025-02-14] MEDS: KETOROLAC 15 MG/ML VIAL (*BKC) IV PUSH (12:16)
[2025-02-14 12:45] VITALS: BP 107/58; PULSE 60; RESP 16; O2SAT 97
== END 2025-02-14 12:45 | disposition home or self-care (01) ==
PROVIDERS: Emergency Medicine; Emergency Provider Physician Assistant; PCP Pediatrics
DX: N39.0 Urinary tract infection, site not specified (principal); F41.8 Other specified anxiety disorders
CPT/HCPCS: 36415; 74176; 80048; 81001; 81025; 85025; 87086; 87186; 96361; 96374; 96375; 99284; J1885; J2405; J7030